=== PATIENT | female | born 1945 | race African-American/Black ===

== ENCOUNTER 2019-05-04 15:17 | Inpatient (IN) | payer MEDICARE, OTHER ==
[~2019-05-04] VITALS: Ht 165.1 cm; Wt 99.8 kg
[2019-05-04 15:19] VITALS: BP 103/52
[2019-05-04] MEDS ORDERED: Solu-MEDROL 125mg Inj IVP ONE (15:30)
[2019-05-04] MEDS: Albuterol ud Inhalation HHN SCH ×2 (15:31→15:32)
[2019-05-04] MEDS: Ipratropium 0.02% Inh Soln 2.5ml UD HHN SCH ×2 (15:31→15:32)
--- NOTE | 2019-05-04 16:15 | Diagnostic Imaging Report ---
Indication: Dyspnea Comparison: None A single view chest radiograph was obtained. Findings: There is infiltrate ill-defined at the left lung base suspicious for pneumonia. Correlate clinically. The heart is borderline enlarged. Aorta is ectatic and calcified. Bones are osteopenic. IMPRESSION: Suspected pneumonia at the left lung base
[2019-05-04] MEDS ORDERED: Azithromycin 500 MG in NS 275 ML IV ONE (16:30)
[2019-05-04] MEDS ORDERED: Piperacillin/Tazobactam 3.375 GM in NS 110 ML IVPB ONE (16:30)
[2019-05-04 16:36] LABS: APPEARANCE,URINE CLEAR; BILIRUBIN, URINE 2+ (NEGATIVE); GLUCOSE, URINE (UA) NEGATIVE (NEGATIVE); KETONES,URINE 1+ (NEGATIVE); LEUKOCYTE ESTERASE ,URINE 1+ (NEGATIVE); NITRITE,URINE NEGATIVE (NEGATIVE); PH,URINE 5 (4.5-8.0); PROTEIN,URINE 2+ (NEGATIVE); UROBILINOGEN,URINE 4 MG/DL (0.0-1.0)
[2019-05-04 16:44] LABS: COLOR,URINE YELLOW
[2019-05-04] MEDS ORDERED: LORazepam Inj 2mg/ml 1ml IV ONE (16:45)
[2019-05-04] MEDS ORDERED: BISACODYL10 M1 RC (16:49)
[2019-05-04] MEDS ORDERED: NORCO 5-325 TA1 EACH ORAL (16:49)
[2019-05-04] MEDS ORDERED: ACETAMINOPHEN500 M5 ORAL (16:49)
[2019-05-04] MEDS ORDERED: ISOSORBIDE MONO20 MG PO (16:49)
[2019-05-04] MEDS ORDERED: AMMONIUM LACTA385 GM TP (16:49)
[2019-05-04] MEDS ORDERED: METOPROLOL TART50 M1 ORAL (16:49)
[2019-05-04] MEDS ORDERED: MOM30 ML ORAL (16:49)
[2019-05-04] MEDS ORDERED: FUROSEMIDE40 MG ORAL (16:49)
[2019-05-04] MEDS ORDERED: ADALAT10 MG ORAL (16:49)
[2019-05-04] MEDS ORDERED: BUDESONIDE-FO10.2 GM IH (16:49)
[2019-05-04] MEDS ORDERED: POTASSIUM CHLO20 ME3 PO (16:49)
[2019-05-04] MEDS ORDERED: VENTOLIN HFA18 GM INH (16:49)
[2019-05-04] MEDS ORDERED: DIVALPROEX SOD125 MG PO (16:49)
[2019-05-04] MEDS ORDERED: CLONIDINE HCL0.1 MG PO (16:49)
[2019-05-04] MEDS ORDERED: BENZTROPINE ME0.5 MG ORAL (16:49)
[2019-05-04] MEDS ORDERED: FLONASE ALLERG9.9 ML NS (16:49)
[2019-05-04] MEDS ORDERED: ZOLPIDEM TARTRAT5 MG ORAL (16:49)
[2019-05-04] MEDS ORDERED: MAGNESIUM OXID400 M1 ORAL (16:49)
[2019-05-04] MEDS ORDERED: DOCUSATE SODIU100 M2 ORAL (16:49)
[2019-05-04] MEDS ORDERED: GABAPENTIN600 MG ORAL (16:49)
[2019-05-04] MEDS ORDERED: NAMENDA5 MG ORAL (16:49)
[2019-05-04] MEDS ORDERED: LISINOPRIL20 MG ORAL (16:49)
--- NOTE | 2019-05-04 17:33 | Emergency Room Report ---
History of Present Illness General Chief Complaint: Dyspnea/Respdistress Source: Family Member, Medical Record, EMS Present Illness HPI 73-year-old female presents ED for evaluation. Complaining with shortness of breath. O2 sats low. Placed on oxygen. History of COPD and CHF. Patient has nonverbal at baseline. Unable to provide any additional history at this time. Per EMS patient was transferred to this assisted facility from [facility]. Per he was unhappy with the care there so he requested a transfer. Patient was at the assisted facility for only a few hours when she came unstable and needed to be brought to the hospital. No reported fevers or chills. No reported chest pain. No other aggravating relieving factors. No other associated symptoms Allergies: Coded Allergies: No Known Allergies (Unverified , 05/04/19) Patient History Past Medical History: CHF, COPD Past Surgical History: none Pertinent Family History: none Social History: Denies: smoking, alcohol use, drug use Now: No Immunizations: UTD Reviewed Nursing Documentation: PMH: Agreed; PSxH: Agreed Review of Systems All Other Systems: limited Physical Exam Vital Signs Date Time Temp Pulse Resp B/P (MAP) Pulse Ox O2 Delivery O2 Flow Rate FiO2 05/04/19 15:09 98.6 100 20 92/44 (60) 96 Nasal Cannula 4.0 05/04/19 15:36 28 Sp02 EP Interpretation: reviewed, normal General Appearance: GCS 15, non-toxic, mild distress Head: normocephalic Eyes: bilateral eye normal inspection, bilateral eye PERRL ENT: normal ENT inspection Neck: normal inspection Respiratory: crackles, rales Cardiovascular #1: regular rate, rhythm, no edema Gastrointestinal: normal bowel sounds, non tender, soft, non-distended, no guarding, no rebound Rectal: deferred Genitourinary: no CVA tenderness Musculoskeletal: normal inspection Neurologic: other - nonverbal Psychiatric: other - nonverbal Skin: other - see nursing skin notes Lymphatic: normal inspection Procedures Critical Care Time Critical Care Time i. I feel this is a highly complex case requiring extensive working including EKG/Rhythm strip, Xray/CT/US, Blood/urine lab work, repeat exams while in ED, and administration of strong opiates/narcotics for pain control, admission to hospital or close patient follow up. Total time: 60 min bedside evaluation and treatment excludes procedures (EKG). Reason for critical care: hypoxia, CHF, hypercapnia, pneumonia Possible complications: hypotension, hypertension, MN, shock, arrhythmias, metabolic acidosis, end organ damage, respiratory failure. Interventions: Labs, EKG, chest x-ray, nebulizer treatment, antibiotics, ABG, BiPAP Course: 73-year-old female presents ED for shortness of breath. In transit from [facility] to another facility when she became hypoxic. Started on breathing treatments. Chest x-ray shows pneumonia. Patient very difficult IV access. Ultimately established by nursing. No leukocytosis. Hemoglobin/ hematocrit stable, BUN/creatinine elevated, troponin 0.038, BNP elevated, ABG shows some acidosis with hypercapnia. Started on BiPAP. Given broad-spectrum antibiotics Consultations: nursing staff, EMS, family Performed by: Dr Sagastume Tolerated well condition = critical j. because of unstable vital signs this patient had a condition that could potentially threaten life or limb. I feel this is a critical patient who required my full attention while patient was considered critical. Total Critical Care Time excluding procedures was greater than 60 minutes Medical Decision Making Diagnostic Impression: Primary Impression: Respiratory distress Additional Impressions: Pneumonia Qualified Codes: J18.9 - Pneumonia, unspecified organism CHF exacerbation Qualified Codes: I50.9 - Heart failure, unspecified Renal insufficiency Hypercapnic acidosis ER Course Hospital Course 73-year-old female presents with shortness of breath and hypoxia. In transit from 1 assisted facility to another. Differential diagnoses include: MN/unstable angina, contusion, muscle strain, PTX, rib fracture Clinical course Patient placed on stretcher. on surveillance monitor. After initial history and physical I ordered labs, EKG, chest x-ray, nebulizer treatments. labs reviewed- no leukocytosis, hemoglobin/hematocrit stable, BUN/creatinine elevated, troponins negative, BNP elevated. ABG shows acidosis with hypercapnia EKG - NSR, no acute ischemic changes inteprreted by me Chest x-ray- cardiomegaly, L lobe infiltrate Antibiotics given. Started on BiPAP. Respiratory status improved. given IVFs. Case discussed with Dr. Jo and he agreed to accept the patient to his service for further care and support I. I feel this is a highly complex case requiring extensive working including EKG/Rhythm strip, Xray/CT/US, Blood/urine lab work, repeat exams while in ED, and administration of strong opiates/narcotics for pain control, admission to hospital or close patient follow up. Diagnosis - respiratory distress, pneumonia, CHF exacerbation, renal insufficiency, hypercapnic acidosis admitted to SDU in critical condition Labs Test 05/04/19 16:00 05/04/19 16:30 05/04/19 17:45 05/04/19 20:20 Urine Color Yellow Urine Appearance Clear Urine pH 5 (4.5-8.0) Urine Specific Leander 1.020 (1.005-1.035) Urine Protein 2+ (NEGATIVE) Urine Glucose (UA) Negative (NEGATIVE) Urine Ketones 1+ (NEGATIVE) Urine Blood Negative (NEGATIVE) Urine Nitrite Negative (NEGATIVE) Urine Bilirubin 2+ (NEGATIVE) Urine Ictotest Negative (NEGATIVE) Urine Urobilinogen 4 MG/DL (0.0-1.0) Urine Leukocyte Esterase 1+ (NEGATIVE) Urine RBC 0-2 /HPF (0 - 2) Urine WBC 2-4 /HPF (0 - 2) Urine Squamous Epithelial Cells Few /LPF (NONE/OCC) Urine Bacteria Few /HPF (NONE) Arterial Blood pH 7.253 (7.350-7.450) Arterial Blood Partial Pressure CO2 61.0 mmHg (35.0-45.0) Arterial Blood Partial Pressure O2 66.4 mmHg (75.0-100.0) Arterial Blood HCO3 26.3 mmol/L (22.0-26.0) Arterial Blood Oxygen Saturation 89.5 % (95-100) Arterial Blood Base Excess -2.0 (-2-2) Hoang Test Positive White Blood Count 6.4 K/UL (4.8-10.8) Red Blood Count 3.99 M/UL (4.20-5.40) Hemoglobin 12.6 G/DL (12.0-16.0) Hematocrit 41.9 % (37.0-47.0) Mean Corpuscular Volume 105 FL (80-99) Mean Corpuscular Hemoglobin 31.5 PG (27.0-31.0) Mean Corpuscular Hemoglobin Concent 30.1 G/DL (32.0-36.0) Red Cell Distribution Width 16.4 % (11.6-14.8) Platelet Count 51 K/UL (150-450) Mean Platelet Volume 8.3 FL (6.5-10.1) Neutrophils (%) (Auto) % (45.0-75.0) Lymphocytes (%) (Auto) % (20.0-45.0) Monocytes (%) (Auto) % (1.0-10.0) Eosinophils (%) (Auto) % (0.0-3.0) Basophils (%) (Auto) % (0.0-2.0) Differential Total Cells Counted 100 Neutrophils % (Manual) 69 % (45-75) Lymphocytes % (Manual) 22 % (20-45) Monocytes % (Manual) 4 % (1-10) Eosinophils % (Manual) 0 % (0-3) Basophils % (Manual) 0 % (0-2) Band Neutrophils 5 % (0-8) Platelet Estimate Decreased Platelet Morphology Normal Red Blood Cell Morphology Normal Lactic Acid Level 1.90 mmol/L (0.4-2.0) Sodium Level 146 MMOL/L (136-145) Potassium Level 5.0 MMOL/L (3.5-5.1) Chloride Level 109 MMOL/L (98-107) Carbon Dioxide Level 28 MMOL/L (21-32) Anion Gap 9 mmol/L (5-15) Blood Urea Nitrogen 49 mg/dL (7-18) Creatinine 1.9 MG/DL (0.55-1.30) Estimat Glomerular Filtration Rate 31.3 mL/min (>60) Glucose Level 225 MG/DL (74-106) Calcium Level 8.5 MG/DL (8.5-10.1) Total Bilirubin 0.3 MG/DL (0.2-1.0) Aspartate Amino Transf (AST/SGOT) 62 U/L (15-37) Alanine Aminotransferase (ALT/SGPT) 36 U/L (12-78) Alkaline Phosphatase 57 U/L (46-116) Troponin I 0.038 ng/mL (0.000-0.056) Pro-B-Type Natriuretic Peptide 2886 pg/mL (0-125) Total Protein 7.2 G/DL (6.4-8.2) Albumin 2.4 G/DL (3.4-5.0) Globulin 4.8 g/dL Albumin/Globulin Ratio 0.5 (1.0-2.7) EKG Diagnostic Results Rate: normal Rhythm: NSR ST Segments: no acute changes ASA given to the pt in ED: No Rhythm Strip Diag. Results EP Interpretation: yes Rhythm: NSR, no PVC's, no ectopy Chest X-Ray Diagnostic Results Chest X-Ray Diagnostic Results : Chest X-Ray Ordered: Yes # of Views/Limited/Complete: 1 View Indication: Shortness of Breath EP Interpretation: Yes Interpretation: no pneumothorax, other - LLL infiltrate Impression: Other - pneumonia Electronically Signed by: Electronically signed by Osman Sagastume MD Last Vital Signs Date Time Temp Pulse Resp B/P (MAP) Pulse Ox O2 Delivery O2 Flow Rate FiO2 05/04/19 15:36 97 18 100 Nasal Cannula 2.0 28 90 26 100 05/04/19 15:19 98.6 103/52 Status: improved Disposition: HOME, SELF-CARE Condition: Critical Referrals: NOT CHOSEN IPA/,REFERRING (PCP) Osman Sagastume MD May 04, 2019 17:33
[2019-05-04 18:17] LABS: HEMATOCRIT 41.9 % (37.0-47.0); HEMOGLOBIN 12.6 G/DL (12.0-16.0); MEAN CORPUSCULAR VOLUME 105 FL (80-99); PLATELET COUNT 51 K/UL (150-450); RED BLOOD COUNT 3.99 M/UL (4.20-5.40); RED CELL DISTRIBUTION WIDTH 16.4 % (11.6-14.8); WHITE BLOOD COUNT 6.4 K/UL (4.8-10.8)
[2019-05-04 19:30] VITALS: BP 111/56
[2019-05-04 20:30] VITALS: BP 126/62
[2019-05-04] MEDS ORDERED: Zolpidem 5mg tab ORAL PRN ×2 (20:30→20:45)
[2019-05-04] MEDS ORDERED: HYDROcodone/Acetamin 5/325 tab ORAL PRN (20:30)
[2019-05-04] MEDS ORDERED: Milk of Magnesia 30ml Ud ORAL PRN (20:45)
[2019-05-04] MEDS: Albuterol/Ipratropium 3ml neb HHN SCH (21:00)
[2019-05-04] MEDS: Metoprolol Tartrate 50mg tab ORAL SCH (21:00)
[2019-05-04] MEDS: Depakote 125mg Sprinkles ORAL SCH (21:00)
[2019-05-04 21:05] LABS: ANION GAP 9 mmol/L (5-15); BLOOD UREA NITROGEN 49 mg/dL (7-18); CALCIUM 8.5 MG/DL (8.5-10.1); CARBON DIOXIDE 28 MMOL/L (21-32); CHLORIDE 109 MMOL/L (98-107); CREATININE 1.9 MG/DL (0.55-1.30); SODIUM 146 MMOL/L (136-145)
[2019-05-04 21:16] LABS: ALANINE AMINOTRANSFERASE 36 U/L (12-78); ALBUMIN 2.4 G/DL (3.4-5.0); ALBUMIN/GLOBULIN RATIO 0.5 (1.0-2.7); ALKALINE PHOSPHATASE 57 U/L (46-116); ASPARTATE AMINO TRANSFERASE 62 U/L (15-37); BILIRUBIN,TOTAL 0.3 MG/DL (0.2-1.0)
[2019-05-04 21:45] VITALS: BP 129/70
[2019-05-04] MEDS ORDERED: Piperacillin/Tazobactam 2.25 GM in D5W 55 ML IVPB SCH (22:00)
[2019-05-04] MEDS: Zosyn 3.375gm q8h **Extended infusion IVPB SCH ×2 (23:06)
[2019-05-05] VITALS (31 sets, daily range): BP systolic 86–174; BP diastolic 38–88
[2019-05-05] MEDS: Naloxone 0.4mg/ml Inj IVP SCH (01:30)
[2019-05-05] MEDS ORDERED: Naloxone 0.4mg/ml Inj ONE ×2 (01:31→01:40)
[2019-05-05] MEDS: Albuterol/Ipratropium 3ml neb HHN SCH ×4 (01:45→19:02)
[2019-05-05] MEDS ORDERED: Vancomycin 500 MG in NS 110 ML IV SCH (02:00)
--- NOTE | 2019-05-05 02:47 | Diagnostic Imaging Report ---
Indications: Altered level of consciousness Technique: Spiral acquisitions obtained through the brain. Angled axial and coronal 5 x 5 mm slices were reconstructed. Total dose length product 1179 mGycm. CTDI vol(s) 53 mGy. Dose reduction achieved using automated exposure control Comparison: None. Findings: There is age-related enlargement of the ventricles and extra axial CSF spaces. There is periventricular deep white matter low-attenuation, consistent with chronic microvascular ischemic changes. No acute intracranial hemorrhage or edema. No mass effect nor midline shift. Normal pantoja-white differentiation. Intact calvarium. Impression: Chronic and age-related changes. Negative for acute intracranial bleed or mass effect This agrees with the preliminary interpretation provided overnight by [facility]. The CT scanner at [facility] is accredited by the [employer] and the scans are performed using protocols designed to limit radiation exposure to as low as reasonably achievable to attain images of sufficient resolution adequate for diagnostic evaluation.
--- NOTE | 2019-05-05 04:20 | Emergency Room Report ---
History of Present Illness General Chief Complaint: Dyspnea/Respdistress Source: Family Member, Medical Record, EMS Present Illness Allergies: Coded Allergies: No Known Allergies (Unverified , 05/04/19) Patient History Now: No Nursing Documentation-PMH Hx Cardiac Problems: Yes Hx Hypertension: Yes Hx COPD: Yes Hx Cancer: No Hx Gastrointestinal Problems: No Hx Neurological Problems: Yes Hx Dementia: Yes Physical Exam Vital Signs Date Time Temp Pulse Resp B/P (MAP) Pulse Ox O2 Delivery O2 Flow Rate FiO2 05/04/19 15:09 98.6 100 20 92/44 (60) 96 Nasal Cannula 4.0 05/04/19 15:36 28 Procedures Critical Care Time Critical Care Time 30 minutes for multiple re-evaluations acute deterioration requiring repeat exam concerning for respiratory failure not including any procedural time Central Line Central Line : Consent: Emergent Central Line Lumen: triple Maximal Sterile Barrier Tech: yes cap, yes mask, yes sterile gown, yes sterile gloves, yes large sterile sheet, yes hand hygiene, yes chlorhexidine prep Central Line Postion: femoral (R) Complications: none Central Line Post Position: sutured Attempts: One Patient Tolerated: Well Complications: None Intubation Intubation : Consent: Emergent Intubation Method: orotracheal Tube Size (cm): 7.5 Medications: Etomidate, Succinylcholine Breath Sounds after Intubation: equal Intubation Complications: no complications Attempts: One Patient Tolerated: Well Complications: None Additional Procedure Procedure Narrative I was called upstairs by the admitting physician for an airway intubation Upon arrival to the floor patient's blood pressure is in the mid 90s however does appear to be fairly labile Therefore central line placement was made please refer to the note for that patient had some response with physical stimuli The second ABG appears to be fairly similar to the initial the rate on the BiPAP was increased And the O2 decreased However after repeat ABG patient continues to retain CO2 Initially during the work-up patient's pupils were also fairly pinpoint appearing therefore Narcan had been given and CT head obtained Patient did not have much response to Narcan and CT head at this time is not showing any acute process by radiology Please refer to the note for the intubation at this time patient's care is handed back to the admitting physician Medical Decision Making Diagnostic Impression: Primary Impression: Respiratory distress Additional Impressions: Hypercapnic acidosis Renal insufficiency CHF exacerbation Qualified Codes: I50.9 - Heart failure, unspecified Pneumonia Qualified Codes: J18.9 - Pneumonia, unspecified organism Chest X-Ray Diagnostic Results Chest X-Ray Diagnostic Results : Chest X-Ray Ordered: Yes # of Views/Limited/Complete: 1 View Indication: Other - Intubation EP Interpretation: Yes Interpretation: no consolidation, no effusion, other - ET tube appropriately above gauri Impression: Other - ET tube appropriate placement Electronically Signed by: Anju Salmon DO Last Vital Signs Date Time Temp Pulse Resp B/P (MAP) Pulse Ox O2 Delivery O2 Flow Rate FiO2 05/05/19 03:15 92 16 108/60 (76) 99 05/05/19 01:30 33 05/05/19 00:00 97.4 05/05/19 00:00 Bi-pap 05/04/19 22:20 2.0 Disposition: HOME, SELF-CARE Condition: Critical Referrals: NOT CHOSEN IPA/,REFERRING (PCP) Anju Salmon DO May 05, 2019 04:20
[2019-05-05] MEDS: Vancomycin 500 MG in NS 110 ML IV SCH ×2 (04:39→16:28)
--- NOTE | 2019-05-05 05:52 | Diagnostic Imaging Report ---
Indication: Post intubation Technique: One view of the chest Comparison: 05/04/2019 Findings: Interim endotracheal intubation, endotracheal tube tip projecting approximately 4 cm above the gauri in good position. Interim nasogastric intubation, nasogastric tube tip projecting beyond the edge of the image, presumably in satisfactory position.. There is improved aeration of the left lung base, with some residual interstitial opacity. The pleural spaces are clear. The heart size is normal Impression: Satisfactory endotracheal and nasogastric intubation Improved aeration of the left lung base, over one day This agrees with the preliminary interpretation provided overnight by [facility].
--- NOTE | 2019-05-05 05:59 | Diagnostic Imaging Report ---
Indication: Status post nasogastric tube placement Technique: Supine view of the upper abdomen Comparison: none Findings: There is a nasogastric tube in place, tip of which projects at the level gastric body. Visualized bowel gas is grossly unremarkable. There is evidence of a Lacey catheter. There is evidence of prior lumbar spine fusion surgery Impression: Satisfactory nasogastric intubation Other findings as noted This agrees with the preliminary interpretation provided overnight by [facility].
[2019-05-05] MEDS: Zosyn 3.375gm q8h **Extended infusion IVPB SCH ×6 (06:20→22:06)
[2019-05-05 07:41] LABS: ANION GAP 11 mmol/L (5-15); BLOOD UREA NITROGEN 49 mg/dL (7-18); CALCIUM 8.5 MG/DL (8.5-10.1); CARBON DIOXIDE 26 MMOL/L (21-32); CHLORIDE 111 MMOL/L (98-107); CHOLESTEROL 115 MG/DL (< 200); CREATININE 1.5 MG/DL (0.55-1.30); HDL CHOLESTEROL 50 MG/DL (40-60); SODIUM 148 MMOL/L (136-145); TRIGLYCERIDES 70 MG/DL (30-150)
[2019-05-05] MEDS ORDERED: Heparin 5000 units/ml inj SUBQ SCH (09:00)
[2019-05-05] MEDS ORDERED: Memantine 5 MG TAB ORAL SCH (09:00)
[2019-05-05] MEDS ORDERED: Lisinopril 20mg tab ORAL SCH (09:00)
[2019-05-05] MEDS: Depakote 125mg Sprinkles ORAL SCH (09:01)
[2019-05-05] MEDS: Pantoprazole Inj IVP SCH (09:01)
[2019-05-05] MEDS: Milk of Magnesia 30ml Ud ORAL SCH (09:01)
[2019-05-05] MEDS: Metoprolol Tartrate 50mg tab ORAL SCH (09:29)
--- NOTE | 2019-05-05 10:00 | History & Physical ---
History and Physical History & Physicial HP dictated # [id number] Jeffrey Jo MD May 05, 2019 10:00
[2019-05-05] MEDS ORDERED: traMADol 50mg tab NG PRN (10:30)
[2019-05-05 13:04] LABS: ANION GAP 10 mmol/L (5-15); BLOOD UREA NITROGEN 48 mg/dL (7-18); CALCIUM 8.4 MG/DL (8.5-10.1); CARBON DIOXIDE 28 MMOL/L (21-32); CHLORIDE 113 MMOL/L (98-107); CREATININE 1.4 MG/DL (0.55-1.30); POTASSIUM 3.8 MMOL/L (3.5-5.1); SODIUM 151 MMOL/L (136-145)
[2019-05-05 13:19] LABS: HEMATOCRIT 37.6 % (37.0-47.0); MEAN CORPUSCULAR VOLUME 102 FL (80-99); PLATELET COUNT 60 K/UL (150-450); RED CELL DISTRIBUTION WIDTH 14.7 % (11.6-14.8); WHITE BLOOD COUNT 7.5 K/UL (4.8-10.8)
--- NOTE | 2019-05-05 14:38 | Diagnostic Imaging Report ---
Indication: Shortness of breath, thrombocytopenia Technique: Grayscale and duplex images of the bilateral lower extremity veins Comparison: Findings: Bilaterally, grayscale and duplex images demonstrate no evidence of intraluminal thrombus. Normal phasic Doppler waveforms, demonstrating normal augmentation response and no evidence of valvular insufficiency. Greater saphenous vein(s) and tibial veins are patent. Normal compressibility. Impression: Negative for evidence of lower extremity deep venous thrombosis bilaterally
--- NOTE | 2019-05-05 14:56 | Pulmonolgy Critical Care Note ---
Critical Care - Asmt/Plan Problems: (1) Dependence on respirator [ventilator] status (2) Respiratory distress (3) Hypercapnic acidosis (4) COPD exacerbation (5) CHF exacerbation (6) Pneumonia (7) Renal insufficiency (8) Weakness (9) Chronic paranoid schizophrenia (10) Dementia (11) H/O: CVA (cerebrovascular accident) (12) Hypernatremia (13) DANYEL (acute kidney injury) Assessment/Plan: Continue ventilatory support Dec TV to 45, RR 24 FiO2 40, titrate to SaO2 > 90, PEEP 5 SBT in am RTC and PRN DUOnebs SM 40 IV qDaily (D1) Abx (Zosyn/Vanco) per ID Monitor volumes and renal function, D5W per renal, PRN Lasix F/U TTE Start OGTF's Minimize sedative, F/U psych recs DVT Px: Hep Sq FC, continue to discuss GOC CCT 45 D/W RN, RT, Dr. Jo and Dr. Tavera D/W @ bedside Critical Care - Objective Last 24 Hour Vital Signs Date Time Temp Pulse Resp B/P (MAP) Pulse Ox O2 Delivery O2 Flow Rate FiO2 05/05/19 12:52 83 18 100 Mechanical Ventilator 65.0 50 82 18 30 05/05/19 12:00 30 05/05/19 12:00 81 05/05/19 12:00 83 18 137/82 (100) 100 05/05/19 11:00 85 18 143/62 (89) 100 05/05/19 10:57 83 18 50 05/05/19 10:00 85 18 162/38 (79) 100 05/05/19 09:29 19 150/76 05/05/19 09:07 77 18 50 05/05/19 09:03 150/76 05/05/19 09:00 84 18 155/83 (107) 100 05/05/19 08:00 30 05/05/19 08:00 87 05/05/19 08:00 79 18 174/77 (109) 100 05/05/19 07:29 87 18 100 Mechanical Ventilator 65.0 50 88 18 50 05/05/19 07:00 80 18 153/83 (106) 100 05/05/19 06:30 84 16 153/81 (105) 100 05/05/19 06:15 88 18 135/86 (102) 05/05/19 06:00 91 18 116/73 (87) 100 05/05/19 05:00 100 17 137/88 (104) 100 05/05/19 04:30 92 18 50 05/05/19 04:30 92 18 99 Mechanical Ventilator 50 05/05/19 04:00 Mechanical Ventilator 05/05/19 04:00 98.2 97 14 133/60 (84) 93 05/05/19 04:00 100 05/05/19 03:15 92 16 108/60 (76) 99 05/05/19 03:00 93 15 102/61 (75) 100 05/05/19 02:45 96 18 131/63 (85) 100 05/05/19 02:34 92 14 102/62 (75) 94 05/05/19 02:00 83 18 108/65 (79) 98 05/05/19 01:30 33 05/05/19 01:04 93 12 100 40 05/05/19 01:00 93 19 97/54 (68) 99 05/05/19 00:35 105 05/05/19 00:30 93 21 101/54 (70) 98 05/05/19 00:00 50 05/05/19 00:00 97.4 97 26 86/47 (60) 98 05/05/19 00:00 Bi-pap 05/04/19 23:06 104 22 99 Bi-Pap 50 05/04/19 23:03 104 22 99 50 05/04/19 22:36 105 05/04/19 22:20 98.6 113 25 129/70 99 Bi-pap 2.0 50 05/04/19 22:01 Bi-Pap 05/04/19 21:45 98.6 113 25 129/70 99 Bi-pap 2.0 50 05/04/19 21:09 114 25 100 50 05/04/19 21:00 105 93/50 05/04/19 20:30 98.6 110 24 126/62 100 Bi-pap 2.0 50 05/04/19 20:29 118 34 100 50 05/04/19 19:30 98.6 108 18 111/56 95 Nasal Cannula 2.0 28 05/04/19 15:36 97 18 100 Nasal Cannula 2.0 28 90 26 100 2/26/20 15:19 98.6 95 20 103/52 100 Nasal Cannula 4.0 05/04/19 15:19 95 20 Nasal Cannula 4.0 05/04/19 15:09 98.6 100 20 92/44 (60) 96 Nasal Cannula 4.0 Status: sedated - intubated Condition: critical HEENT: atraumatic, normocephalic, other - ETT, OGT Lungs: rhonchi Heart: HR/BP stable Abdomen: soft, non-tender, active bowel sounds Extremities: no C/C/E Micro: Microbiology Date/Time Source Procedure Growth Status 05/04/19 16:20 Nasal Nares - Final Complete 05/04/19 16:20 Nasal Nares - Final Complete 05/04/19 15:40 Rectum Received Blood Sugars: BS controlled Critical Care - Subjective ROS Limited/Unobtainable: Yes ICU Day: 1 Intubation Day: 2 Interval Events: 73 F non-verbal, ? dementia, ? CPS, COPD, CHF BIB EMS with SOB though to be 2/2 ADHF vs COPD exac vs tracheobronchitis She initially went to [facility] but given persistent CO2 retention was transferred to the ICU and intubated. She was hypotensive had a line placed got IVF and did not require pressors. Now she is hypertensive. Per RN MS has been waxing and waning, she in non-verbal but nods. She is in restraints. Per her she was being treated with psych meds @ the facility and has a Dx of CPS and dementia which he contests. He denies any h/o neuropsych problems. Condition: critical IV Access: central - R fem TLC EKG Rhythm: Sinus Rhythm FI02: 50 Vent Support Breath Rate: 18 Vent Support Mode: AC Vent Tidal Volume: 650 Sputum Amount: Small PEEP: 5.0 PIP: 35 Secretions: small white thick Fluids: D5W@75 Drips: N/A I&O: Intake and Output 05/04/19 05/05/19 19:00 07:00 Intake Total 610 ml 760 ml Output Total 430 ml Balance 610 ml 330 ml Intake Oral 0 ml IV Total 610 ml 760 ml Output Urine Total 430 ml Subjective: KEVIN CXR: NAD BIB atx ET-Tube: 7.5 ET Position: 23 Labs: Laboratory Tests Test 05/04/19 16:00 05/04/19 16:30 05/04/19 17:45 05/04/19 20:20 Urine Color Yellow Urine Appearance Clear Urine pH 5 (4.5-8.0) Urine Specific [place] 1.020 (1.005-1.035) Urine Protein 2+ (NEGATIVE) H Urine Glucose (UA) Negative (NEGATIVE) Urine Ketones 1+ (NEGATIVE) H Urine Blood Negative (NEGATIVE) Urine Nitrite Negative (NEGATIVE) Urine Bilirubin 2+ (NEGATIVE) H Urine Ictotest Negative (NEGATIVE) Urine Urobilinogen 4 MG/DL (0.0-1.0) H Urine Leukocyte Esterase 1+ (NEGATIVE) H Urine RBC 0-2 /HPF (0 - 2) Urine WBC 2-4 /HPF (0 - 2) Urine Squamous Epithelial Cells Few /LPF (NONE/OCC) Urine Bacteria Few /HPF (NONE) Arterial Blood pH 7.253 (7.350-7.450) Arterial Blood Partial Pressure CO2 61.0 mmHg (35.0-45.0) *H Arterial Blood Partial Pressure O2 66.4 mmHg (75.0-100.0) L Arterial Blood HCO3 26.3 mmol/L (22.0-26.0) H Arterial Blood Oxygen Saturation 89.5 % (95-100) *L Arterial Blood Base Excess -2.0 (-2-2) Hoang Test Positive White Blood Count 6.4 K/UL (4.8-10.8) Red Blood Count 3.99 M/UL (4.20-5.40) L Hemoglobin 12.6 G/DL (12.0-16.0) Hematocrit 41.9 % (37.0-47.0) Mean Corpuscular Volume 105 FL (80-99) H Mean Corpuscular Hemoglobin 31.5 PG (27.0-31.0) H Mean Corpuscular Hemoglobin Concent 30.1 G/DL (32.0-36.0) L Red Cell Distribution Width 16.4 % (11.6-14.8) H Platelet Count 51 K/UL (150-450) L Mean Platelet Volume 8.3 FL (6.5-10.1) Neutrophils (%) (Auto) % (45.0-75.0) Lymphocytes (%) (Auto) % (20.0-45.0) Monocytes (%) (Auto) % (1.0-10.0) Eosinophils (%) (Auto) % (0.0-3.0) Basophils (%) (Auto) % (0.0-2.0) Differential Total Cells Counted 100 Neutrophils % (Manual) 69 % (45-75) Lymphocytes % (Manual) 22 % (20-45) Monocytes % (Manual) 4 % (1-10) Eosinophils % (Manual) 0 % (0-3) Basophils % (Manual) 0 % (0-2) Band Neutrophils 5 % (0-8) Platelet Estimate Decreased L Platelet Morphology Normal Red Blood Cell Morphology Normal Lactic Acid Level 1.90 mmol/L (0.4-2.0) Sodium Level 146 MMOL/L (136-145) H Potassium Level 5.0 MMOL/L (3.5-5.1) Chloride Level 109 MMOL/L (98-107) H Carbon Dioxide Level 28 MMOL/L (21-32) Anion Gap 9 mmol/L (5-15) Blood Urea Nitrogen 49 mg/dL (7-18) H Creatinine 1.9 MG/DL (0.55-1.30) H Estimat Glomerular Filtration Rate 31.3 mL/min (>60) Glucose Level 225 MG/DL (74-106) H Calcium Level 8.5 MG/DL (8.5-10.1) Total Bilirubin 0.3 MG/DL (0.2-1.0) Aspartate Amino Transf (AST/SGOT) 62 U/L (15-37) H Alanine Aminotransferase (ALT/SGPT) 36 U/L (12-78) Alkaline Phosphatase 57 U/L (46-116) Troponin I 0.038 ng/mL (0.000-0.056) Pro-B-Type Natriuretic Peptide 2886 pg/mL (0-125) H Total Protein 7.2 G/DL (6.4-8.2) Albumin 2.4 G/DL (3.4-5.0) L Globulin 4.8 g/dL Albumin/Globulin Ratio 0.5 (1.0-2.7) L Test 05/05/19 00:39 05/05/19 03:42 05/05/19 05:20 05/05/19 07:53 Arterial Blood pH 7.275 (7.350-7.450) 7.252 (7.350-7.450) 7.544 (7.350-7.450) Arterial Blood Partial Pressure CO2 61.5 mmHg (35.0-45.0) *H 69.2 mmHg (35.0-45.0) *H 31.6 mmHg (35.0-45.0) L Arterial Blood Partial Pressure O2 83.8 mmHg (75.0-100.0) 75.8 mmHg (75.0-100.0) 122.2 mmHg (75.0-100.0) H Arterial Blood HCO3 27.9 mmol/L (22.0-26.0) H 29.8 mmol/L (22.0-26.0) H 26.7 mmol/L (22.0-26.0) H Arterial Blood Oxygen Saturation 94.6 % (95-100) L 93.0 % (95-100) L 98.6 % (95-100) Arterial Blood Base Excess 0 (-2-2) 1.0 (-2-2) 4.6 (-2-2) H Hoang Test Positive Positive Positive Sodium Level 148 MMOL/L (136-145) H Potassium Level 5.0 MMOL/L (3.5-5.1) Chloride Level 111 MMOL/L (98-107) H Carbon Dioxide Level 26 MMOL/L (21-32) Anion Gap 11 mmol/L (5-15) Blood Urea Nitrogen 49 mg/dL (7-18) H Creatinine 1.5 MG/DL (0.55-1.30) H Estimat Glomerular Filtration Rate 41.1 mL/min (>60) Glucose Level 204 MG/DL (74-106) H Hemoglobin A1c 6.5 % (4.3-6.0) H Calcium Level 8.5 MG/DL (8.5-10.1) Magnesium Level 1.9 MG/DL (1.8-2.4) Triglycerides Level 70 MG/DL (30-150) Cholesterol Level 115 MG/DL (< 200) LDL Cholesterol 56 mg/dL (<100) HDL Cholesterol 50 MG/DL (40-60) Cholesterol/HDL Ratio 2.3 (3.3-4.4) L Thyroid Stimulating Hormone (TSH) 1.252 uiU/mL (0.358-3.740) Test 05/05/19 10:30 White Blood Count 7.5 K/UL (4.8-10.8) Red Blood Count 3.70 M/UL (4.20-5.40) L Hemoglobin 12.0 G/DL (12.0-16.0) Hematocrit 37.6 % (37.0-47.0) Mean Corpuscular Volume 102 FL (80-99) H Mean Corpuscular Hemoglobin 32.3 PG (27.0-31.0) H Mean Corpuscular Hemoglobin Concent 31.9 G/DL (32.0-36.0) L Red Cell Distribution Width 14.7 % (11.6-14.8) Platelet Count 60 K/UL (150-450) L Mean Platelet Volume 7.2 FL (6.5-10.1) Neutrophils (%) (Auto) % (45.0-75.0) Lymphocytes (%) (Auto) % (20.0-45.0) Monocytes (%) (Auto) % (1.0-10.0) Eosinophils (%) (Auto) % (0.0-3.0) Basophils (%) (Auto) % (0.0-2.0) Differential Total Cells Counted 100 Neutrophils % (Manual) 78 % (45-75) H Lymphocytes % (Manual) 16 % (20-45) L Monocytes % (Manual) 6 % (1-10) Eosinophils % (Manual) 0 % (0-3) Basophils % (Manual) 0 % (0-2) Band Neutrophils 0 % (0-8) Platelet Estimate Decreased L Platelet Morphology Normal Anisocytosis 1+ Macrocytosis 1+ Sodium Level 151 MMOL/L (136-145) H Potassium Level 3.8 MMOL/L (3.5-5.1) Chloride Level 113 MMOL/L (98-107) H Carbon Dioxide Level 28 MMOL/L (21-32) Anion Gap 10 mmol/L (5-15) Blood Urea Nitrogen 48 mg/dL (7-18) H Creatinine 1.4 MG/DL (0.55-1.30) H Estimat Glomerular Filtration Rate 44.5 mL/min (>60) Glucose Level 144 MG/DL (74-106) H Calcium Level 8.4 MG/DL (8.5-10.1) L Rd Li MD May 05, 2019 14:56
[2019-05-05] MEDS ORDERED: Haloperidol 5mg/ml Inj IM PRN (15:00)
[2019-05-05] MEDS ORDERED: LORazepam Inj 2mg/ml 1ml IV PRN (15:15)
--- NOTE | 2019-05-05 16:00 | History and Physical Report ---
DATE OF ADMISSION: 05/04/2019 CHIEF COMPLAINT: Shortness of breath. HISTORY OF PRESENT ILLNESS: This is a 73-year-old female, who [facility]. The first long term was called [facility] and she was supposed to go to [facility], but she got short of breath. She came to the emergency room. She has history of history of COPD and CHF. She was placed on oxygen and was admitted to [facility] overnight and received multiple calls that the patient became hypotensive and repeat ABG shows respiratory acidosis with CO2 retention and the patient was eventually transferred to the ICU at my request and was intubated. Also, a central line was placed because of the hypotension and need for pressors. This morning, the blood pressure is better. History was obtained from the chart, also talking to the who is at bedside. PAST MEDICAL HISTORY: Basically as above. Apparently, the patient has had also history of high blood pressure. No history of dementia, but she was on some psychiatric medications per although she does not have any psychiatric disease. SOCIAL HISTORY: Remote history of smoking. No history of alcohol abuse. ALLERGIES: No known drug allergies. REVIEW OF SYSTEMS: Unobtainable. PHYSICAL EXAMINATION: GENERAL: The patient is an elderly female, in no acute distress. She is orally intubated. VITAL SIGNS: Blood pressure 150/76, pulse 84, respiratory rate 16, and temperature is 98.2. HEENT: [place] conjunctivae. NECK: Supple. LUNGS: Coarse breath sounds bilaterally. HEART: S1, S2 without murmurs or rubs. ABDOMEN: Soft, nontender. EXTREMITIES: No cyanosis or edema. LABORATORY FINDINGS: The CBC shows a WBC of 6100, hematocrit is 41.9, hemoglobin is 12.6, platelets 51,000. Chemistry panel shows a serum sodium 148, potassium 5, chloride 111, CO2 26, BUN is 49, creatinine 1.5. Creatinine was 1.9 yesterday. The TSH is 1.2. LDL 56. AST . Triglycerides of 70. The UA shows 2+ protein. Chest x-ray reportedly showed left lower lobe base infiltrate and possible pneumonia. ASSESSMENT: This is a 73-year-old female, who was admitted with dyspnea. She has COPD exacerbation with CO2 retention and respiratory acidosis. She became hypotensive overnight, so there is possibility of sepsis. She has pneumonia, thrombocytopenia, and acute respiratory failure, requiring intubation. PLAN: The patient will be on respirator. The patient will be seen by Dr. Li in Pulmonary consultation. She will be weaned off as tolerated and she was started on antibiotics. Blood pressure medication will be on hold at this point. The patient does not require pressors although she was hypotensive last night. She will receive IV fluid to correct her hypernatremia. Labs will be followed and further adjustment will be made in the patient's regimen. Jeffrey Jo M.D. DR: SHREYA JOB#: [id number] CC:
[2019-05-05] MEDS ORDERED: Dyna-Hex 2% Top Sol 2oz TOPIC SCH (20:00)
--- NOTE | 2019-05-05 20:00 | Consultation ---
DATE OF CONSULTATION: 05/05/2019 CONSULTING PHYSICIAN: Nati Tavera M.D. HISTORY OF PRESENT ILLNESS: This is a 73-year-old female with a history of dementia, COPD, weakness, CHF, and pneumonia who has been admitted to the hospital for medical stabilization. In addition, the patient has a history of CVA. The patient is in ICU. is at bedside. The patient is agitated, in restraints, attempting to come out of bed, and taking self out of the restraints. The patient's stated that the patient never had a history of a psychiatric illness. No agitation. The patient is confused, disoriented, poor memory. The stated that the patient to a psychiatric hospital nor taking any psychotropic medication before [facility]. The patient's stated that the [facility] overmedicated the patient. The patient currently is on Namenda and Depakote. The patient was intubated and was unable to answer any questions. However, she was agitated and is attempting to come out of the bed. PAST PSYCHIATRIC HISTORY: It is documented that the patient has a history of dementia and has been on multiple psychotropic medications. PAST MEDICAL HISTORY: Obesity, hypertension, CVA. ALLERGIES: No known drug allergies. SUBSTANCE ABUSE HISTORY: No known history of illicit drug use or alcohol. SOCIAL HISTORY: The patient is . Used to live at [facility] up until recently. MENTAL STATUS EXAMINATION: The patient is alert, intubated, confused. Mood is agitated. Affect is flat. Thought process is disorganized. Thought content, no suicidal or homicidal ideation noted. Cognition is impaired. ASSESSMENT: [place] I Dementia with behavior disturbance by history. [place] II Deferred. [place] III As above. [place] IV Low. [place] V 20. PLAN: 1. We will discontinue the Depakote, discontinue Ativan. 2. Haldol p.r.n. 3. Discussed with the and nurse as well as Dr. Li. Nati Tavera M.D. DR: HAILEY JOB#: [id number] CC: RAMONA
[2019-05-05] MEDS: Dyna-Hex 2% Top Sol 2oz TOPIC SCH (20:23)
--- NOTE | 2019-05-05 20:30 | Consultation ---
DATE OF CONSULTATION: 05/05/2019 INFECTIOUS DISEASE CONSULTATION CONSULTING PHYSICIAN: Justo Jo M.D. PRIMARY ATTENDING PHYSICIAN: Jeffrey Jo M.D. REASON FOR CONSULT: Pneumonia. HISTORY OF PRESENT ILLNESS: This is a 73-year-old female, who is a [facility] resident admitted yesterday complaining of shortness of breath, coughing, has decrease in O2 saturation thus was put on BiPAP and the condition became worse, intubated. Currently, she is in the ICU and not the source of history, on restraints. PAST MEDICAL HISTORY: Significant for COPD, hypertension, dementia, and CHF. MEDICATIONS: Getting tramadol, magnesium hydroxide, Neurontin, Protonix, vancomycin, Zosyn, albuterol ipratropium inhaler, Tylenol, milk of magnesium, Klonopin, [place], and Ambien. ALLERGIES: No known drug allergies. SOCIAL HISTORY: . Has history of smoking, quit recently. No drug or alcohol abuse. Have children. REVIEW OF SYSTEMS: Unobtainable. PHYSICAL EXAMINATION: VITAL SIGNS: Temperature 98.2. No fever in the hospital. Pulse 82, blood pressure is 137/82. GENERAL APPEARANCE: Seems to be obese. HEAD AND NECK: Orally intubated. Has orogastric tube. HEART: Normal rate. LUNGS: On ventilator. Decreased sounds. ABDOMEN: Soft and nontender. EXTREMITY: Has no edema. NEUROLOGIC: Seems disoriented. LABORATORY AND DIAGNOSTIC DATA: WBC 7.5, hemoglobin 12, hematocrit 37.6, and platelets is 60,000. Blood gas at the time of admission showed pCO2 of 61, pO2 of 66.4. UA, no WBC. Chest x-ray at the time of admission, left lower lobe pneumonia. After intubation, chest x-ray showed improvement of the left lung aeration. CT scan of the head showed chronic age-related changes. IMPRESSION: Pneumonia, has hypercapnic respiratory failure, chronic obstructive pulmonary disease, hypertension, dementia, history of congestive heart failure, obesity, and thrombocytopenia. RECOMMENDATIONS: Continue vancomycin and Zosyn. We will follow up the cultures. At the end of my exam, I thank Dr. Jeffrey Jo for involving me in the care of this patient. Justo Jo M.D. DR: DARLINE JOB#: [id number] CC:
[2019-05-05] MEDS ORDERED: DEPAKOTE ER250 MG ORAL (20:58)
[2019-05-05] MEDS ORDERED: GUAIFENESIN DM118 M1 ORAL (20:58)
[2019-05-05] MEDS ORDERED: IPRATROPIU0.2 MG/1 M HHN (20:58)
[2019-05-05] MEDS ORDERED: FLONASE1 SPRAYS NASAL (20:58)
[2019-05-05] MEDS ORDERED: ALBUTEROL2.5 MG/3 M INH (20:58)
[2019-05-05] MEDS ORDERED: ISOSORBIDE MONO30 M1 PO (20:58)
[2019-05-05] MEDS ORDERED: LISINOPRIL40 MG ORAL (20:58)
[2019-05-05] MEDS ORDERED: DOCUSATE SODIU100 MG ORAL (20:58)
[2019-05-06] VITALS (26 sets, daily range): BP systolic 101–191; BP diastolic 48–104
[2019-05-06] MEDS: Albuterol/Ipratropium 3ml neb HHN SCH ×3 (00:50→18:58)
[2019-05-06] MEDS: Vancomycin 500 MG in NS 110 ML IV SCH ×2 (03:53→16:15)
[2019-05-06] MEDS: Zosyn 3.375gm q8h **Extended infusion IVPB SCH ×6 (05:58→20:55)
[2019-05-06 06:58] LABS: HEMATOCRIT 38.6 % (37.0-47.0); HEMOGLOBIN 12.1 G/DL (12.0-16.0); MEAN CORPUSCULAR VOLUME 101 FL (80-99); PLATELET COUNT 73 K/UL (150-450); RED CELL DISTRIBUTION WIDTH 15.2 % (11.6-14.8); WHITE BLOOD COUNT 5.1 K/UL (4.8-10.8)
[2019-05-06 07:15] LABS: ANION GAP 11 mmol/L (5-15); BLOOD UREA NITROGEN 36 mg/dL (7-18); CALCIUM 8.7 MG/DL (8.5-10.1); CARBON DIOXIDE 24 MMOL/L (21-32); CHLORIDE 114 MMOL/L (98-107); CREATININE 1.1 MG/DL (0.55-1.30); POTASSIUM 4.2 MMOL/L (3.5-5.1); SODIUM 149 MMOL/L (136-145)
[2019-05-06] MEDS: Solu-MEDROL 40mg Inj IVP SCH (09:34)
[2019-05-06] MEDS: Pantoprazole Inj IVP SCH (09:34)
[2019-05-06] MEDS: Milk of Magnesia 30ml Ud ORAL SCH (09:34)
--- NOTE | 2019-05-06 13:24 | Infectious Diseases Prog Note ---
Assessment/Plan Assessment/Plan IMPRESSION: Pneumonia, Bacteremia Hypercapnic respiratory failure, Chronic obstructive pulmonary disease, hypertension, dementia, congestive heart failure, obesity Thrombocytopenia. Acute renal failure improving RECOMMENDATIONS: Continue vancomycin and Zosyn. We will follow up the cultures. Subjective ROS Limited/Unobtainable: Yes Neurologic: Reports: other - on restraint Allergies: Coded Allergies: No Known Allergies (Unverified , 05/04/19) Objective Vital Signs Last 24 Hour Vital Signs Date Time Temp Pulse Resp B/P (MAP) Pulse Ox O2 Delivery O2 Flow Rate FiO2 05/06/19 12:32 97 26 100 Mechanical Ventilator 30 95 21 30 05/06/19 12:00 Mechanical Ventilator 05/06/19 12:00 94 05/06/19 12:00 99.9 93 19 159/81 (107) 98 05/06/19 12:00 30 05/06/19 11:00 89 20 148/69 (95) 97 05/06/19 10:31 95 18 30 05/06/19 10:00 92 18 131/70 (90) 97 05/06/19 09:00 101 21 133/70 (91) 95 05/06/19 08:42 101 20 30 30 05/06/19 08:38 98 05/06/19 08:00 99.1 92 21 115/48 (70) 97 05/06/19 08:00 Mechanical Ventilator 05/06/19 08:00 30 05/06/19 08:00 92 05/06/19 07:00 92 18 117/55 (75) 99 05/06/19 06:52 100 22 98 Mechanical Ventilator 30 99 18 30 05/06/19 06:30 98 19 133/70 (91) 98 05/06/19 06:00 99 22 127/73 (91) 99 05/06/19 05:10 80 18 30 05/06/19 05:00 84 18 123/66 (85) 98 05/06/19 04:00 Mechanical Ventilator 05/06/19 04:00 98.4 92 18 117/59 (78) 98 05/06/19 04:00 30 05/06/19 04:00 84 05/06/19 03:00 100 19 104/56 (72) 96 05/06/19 02:47 99 19 30 05/06/19 02:00 101 19 120/60 (80) 96 05/06/19 01:34 84 05/06/19 01:00 85 18 101/53 (69) 100 05/06/19 01:00 82 18 100 Mechanical Ventilator 30 05/06/19 00:50 83 18 Mechanical Ventilator 30 30 05/06/19 00:00 30 05/06/19 00:00 Mechanical Ventilator 05/06/19 00:00 98.6 85 20 104/51 (68) 97 05/06/19 00:00 81 05/05/19 23:00 87 19 98/54 (69) 97 05/05/19 22:33 92 18 30 05/05/19 22:00 93 22 130/63 (85) 99 05/05/19 21:12 85 18 30 05/05/19 21:00 84 18 98/50 (66) 98 05/05/19 20:00 Mechanical Ventilator 05/05/19 20:00 98.0 85 18 90/49 (63) 97 05/05/19 20:00 82 05/05/19 20:00 30 05/05/19 19:15 83 18 118/75 (89) 100 05/05/19 19:12 84 18 100 Mechanical Ventilator 30 05/05/19 19:02 83 18 Mechanical Ventilator 30 30 05/05/19 19:00 85 18 110/55 (73) 99 05/05/19 17:22 90 21 115/60 (78) 99 05/05/19 17:10 84 18 30 05/05/19 17:00 82 18 119/62 (81) 99 05/05/19 16:00 98.3 90 21 115/60 (78) 99 05/05/19 16:00 Mechanical Ventilator 05/05/19 16:00 86 05/05/19 15:00 90 21 143/71 (95) 99 05/05/19 14:57 92 22 50 05/05/19 14:45 30 05/05/19 14:00 89 18 134/78 (96) 99 Height (Feet): 5 Height (Inches): 5.00 Weight (Pounds): 220 HEENT: other - orally intubated Respiratory/Chest: lungs clear, other - on ventilator Cardiovascular: normal rate Abdomen: soft, non tender, other - orogastric tube Extremities: no edema Neurologic/Psychiatric: alert, responsive Microbiology Date/Time Source Procedure Growth Status 05/04/19 17:45 Blood Blood Culture - Preliminary NO GROWTH AFTER 24 HOURS Resulted 05/04/19 17:30 Blood Blood Culture - Preliminary Resulted 05/04/19 16:20 Nasal Nares - Final Complete 05/04/19 16:20 Nasal Nares - Final Complete 05/04/19 15:40 Rectum Received Laboratory Tests Test 05/06/19 05:30 White Blood Count 5.1 K/UL (4.8-10.8) Red Blood Count 3.80 M/UL (4.20-5.40) L Hemoglobin 12.1 G/DL (12.0-16.0) Hematocrit 38.6 % (37.0-47.0) Mean Corpuscular Volume 101 FL (80-99) H Mean Corpuscular Hemoglobin 31.8 PG (27.0-31.0) H Mean Corpuscular Hemoglobin Concent 31.4 G/DL (32.0-36.0) L Red Cell Distribution Width 15.2 % (11.6-14.8) H Platelet Count 73 K/UL (150-450) L Mean Platelet Volume 9.7 FL (6.5-10.1) Neutrophils (%) (Auto) % (45.0-75.0) Lymphocytes (%) (Auto) % (20.0-45.0) Monocytes (%) (Auto) % (1.0-10.0) Eosinophils (%) (Auto) % (0.0-3.0) Basophils (%) (Auto) % (0.0-2.0) Differential Total Cells Counted 100 Neutrophils % (Manual) 71 % (45-75) Lymphocytes % (Manual) 20 % (20-45) Monocytes % (Manual) 7 % (1-10) Eosinophils % (Manual) 2 % (0-3) Basophils % (Manual) 0 % (0-2) Band Neutrophils 0 % (0-8) Platelet Estimate Decreased L Platelet Morphology Normal Hypochromasia 1+ Anisocytosis 1+ Macrocytosis 1+ Sodium Level 149 MMOL/L (136-145) H Potassium Level 4.2 MMOL/L (3.5-5.1) Chloride Level 114 MMOL/L (98-107) H Carbon Dioxide Level 24 MMOL/L (21-32) Anion Gap 11 mmol/L (5-15) Blood Urea Nitrogen 36 mg/dL (7-18) H Creatinine 1.1 MG/DL (0.55-1.30) Estimat Glomerular Filtration Rate 58.8 mL/min (>60) Glucose Level 124 MG/DL (74-106) H Calcium Level 8.7 MG/DL (8.5-10.1) Current Medications Medications (Trade) Dose Ordered Sig/Haylee Route PRN Reason Start Time Stop Time Status Last Admin Dose Admin Acetaminophen (Tylenol) 650 mg Q4H PRN ORAL Mild Pain (Pain Scale 1-3) 05/04/19 20:45 06/03/19 20:44 Acetaminophen/ Hydrocodone Bitart ([place] 5/325) 1 tab Q6H PRN ORAL PAIN 4-10 05/04/19 20:30 05/11/19 20:29 Albuterol/ Ipratropium (Albuterol/ Ipratropium) 3 ml Q6HRT HHN 05/04/19 21:00 05/09/19 20:59 05/06/19 06:52 Chlorhexidine Gluconate (Nadia-Hex 2%) 1 applic DAILY@2000 TOPIC 05/05/19 20:00 06/04/19 19:59 05/05/19 20:23 Clonidine HCl (Catapres Tab) 0.1 mg Q4H PRN ORAL SBP > OR = 160mmHg 05/04/19 20:30 06/03/19 20:29 Dextrose 1,000 ml @ 75 mls/hr [id number] IV 05/05/19 10:00 06/04/19 09:59 05/05/19 23:55 Dextrose (Dextrose 50%) 25 ml Q30M PRN IV Hypoglycemia 05/04/19 20:45 06/03/19 20:44 Dextrose (Dextrose 50%) 50 ml Q30M PRN IV Hypoglycemia 05/04/19 20:45 06/03/19 20:44 Gabapentin (Neurontin) 600 mg Q8HR ORAL 05/04/19 22:00 06/03/19 21:59 05/06/19 06:16 Haloperidol Lactate (Haldol) 5 mg Q6H PRN IM Agitation 05/05/19 15:00 06/04/19 14:59 Lorazepam (Ativan 2mg/ml 1ml) 1 mg Q2H PRN IV For Anxiety 05/05/19 15:15 05/12/19 15:14 Magnesium Hydroxide (Mom) 30 ml DAILY ORAL 05/05/19 09:00 06/04/19 08:59 05/06/19 09:34 Magnesium Hydroxide (Mom) 30 ml HSPRN PRN ORAL Constipation 05/04/19 20:45 06/03/19 20:44 Methylprednisolone Sodium Succinate (Solu-MEDROL) 40 mg DAILY IVP 05/06/19 09:00 06/05/19 08:59 05/06/19 09:34 Pantoprazole (Protonix) 40 mg DAILY IVP 05/05/19 09:00 06/04/19 08:59 05/06/19 09:34 Piperacillin Sod/ Tazobactam Sod 3.375 gm/Sodium Chloride 110 ml @ 27.5 mls/hr EVERY 8 HOURS IVPB 05/04/19 22:00 05/09/19 21:59 05/06/19 05:58 Tramadol HCl (Ultram) 50 mg Q4H PRN NG for PAIN 05/05/19 10:30 05/12/19 10:29 Vancomycin HCl (Vanco rx to dose) 1 ea DAILY PRN MISC Per rx protocol 05/04/19 23:30 06/03/19 23:29 Vancomycin HCl 500 mg/Sodium Chloride 110 ml @ 110 mls/hr Q12H IV 05/05/19 04:00 05/10/19 03:59 05/06/19 03:53 Justo Jo MD May 06, 2019 13:24
--- NOTE | 2019-05-06 14:07 | General Progress Note ---
Assessment/Plan Problem List: (1) Pneumonia ICD Codes: J18.9 - Pneumonia, unspecified organism SNOMED: 386745616 Qualifiers: Qualified Codes: J18.9 - Pneumonia, unspecified organism (2) COPD exacerbation ICD Codes: J44.1 - Chronic obstructive pulmonary disease with (acute) exacerbation SNOMED: 444572810 (3) CHF exacerbation ICD Codes: I50.9 - Heart failure, unspecified SNOMED: 941672798, [id number] Qualifiers: Qualified Codes: I50.9 - Heart failure, unspecified (4) Dementia ICD Codes: F03.90 - Unspecified dementia without behavioral disturbance SNOMED: 64422879 (5) Acute respiratory failure requiring reintubation ICD Codes: J96.00 - Acute respiratory failure, unspecified whether with hypoxia or hypercapnia SNOMED: 181685179, 115862725 (6) Acute respiratory failure with hypoxemia ICD Codes: J96.01 - Acute respiratory failure with hypoxia SNOMED: 569722839 (7) Bacteremia ICD Codes: R78.81 - Bacteremia SNOMED: 7802569 (8) Sepsis ICD Codes: A41.9 - Sepsis, unspecified organism SNOMED: 48072712 Assessment/Plan: abxs wean as tolerated Discussed with RN follow labs IV steroids Bronchodilators Subjective Allergies: Coded Allergies: No Known Allergies (Unverified , 05/04/19) Subjective seen in ICU intubated Objective Last 24 Hour Vital Signs Date Time Temp Pulse Resp B/P (MAP) Pulse Ox O2 Delivery O2 Flow Rate FiO2 05/06/19 12:32 97 26 100 Mechanical Ventilator 30 95 21 30 05/06/19 12:00 Mechanical Ventilator 05/06/19 12:00 94 05/06/19 12:00 99.9 93 19 159/81 (107) 98 05/06/19 12:00 30 05/06/19 11:00 89 20 148/69 (95) 97 05/06/19 10:31 95 18 30 05/06/19 10:00 92 18 131/70 (90) 97 05/06/19 09:00 101 21 133/70 (91) 95 05/06/19 08:42 101 20 30 30 05/06/19 08:38 98 05/06/19 08:00 99.1 92 21 115/48 (70) 97 05/06/19 08:00 Mechanical Ventilator 05/06/19 08:00 30 05/06/19 08:00 92 05/06/19 07:00 92 18 117/55 (75) 99 05/06/19 06:52 100 22 98 Mechanical Ventilator 30 99 18 30 05/06/19 06:30 98 19 133/70 (91) 98 05/06/19 06:00 99 22 127/73 (91) 99 05/06/19 05:10 80 18 30 05/06/19 05:00 84 18 123/66 (85) 98 05/06/19 04:00 Mechanical Ventilator 05/06/19 04:00 98.4 92 18 117/59 (78) 98 05/06/19 04:00 30 05/06/19 04:00 84 05/06/19 03:00 100 19 104/56 (72) 96 05/06/19 02:47 99 19 30 05/06/19 02:00 101 19 120/60 (80) 96 05/06/19 01:34 84 05/06/19 01:00 85 18 101/53 (69) 100 05/06/19 01:00 82 18 100 Mechanical Ventilator 30 05/06/19 00:50 83 18 Mechanical Ventilator 30 30 05/06/19 00:00 30 05/06/19 00:00 Mechanical Ventilator 05/06/19 00:00 98.6 85 20 104/51 (68) 97 05/06/19 00:00 81 05/05/19 23:00 87 19 98/54 (69) 97 05/05/19 22:33 92 18 30 05/05/19 22:00 93 22 130/63 (85) 99 05/05/19 21:12 85 18 30 05/05/19 21:00 84 18 98/50 (66) 98 05/05/19 20:00 Mechanical Ventilator 05/05/19 20:00 98.0 85 18 90/49 (63) 97 05/05/19 20:00 82 05/05/19 20:00 30 05/05/19 19:15 83 18 118/75 (89) 100 05/05/19 19:12 84 18 100 Mechanical Ventilator 30 05/05/19 19:02 83 18 Mechanical Ventilator 30 30 05/05/19 19:00 85 18 110/55 (73) 99 05/05/19 17:22 90 21 115/60 (78) 99 05/05/19 17:10 84 18 30 05/05/19 17:00 82 18 119/62 (81) 99 05/05/19 16:00 98.3 90 21 115/60 (78) 99 05/05/19 16:00 Mechanical Ventilator 05/05/19 16:00 86 05/05/19 15:00 90 21 143/71 (95) 99 05/05/19 14:57 92 22 50 05/05/19 14:45 30 Intake and Output 05/05/19 05/06/19 19:00 07:00 Intake Total 1536.0 ml 1728.5 ml Output Total 380 ml 690 ml Balance 1156.0 ml 1038.5 ml Free Water 260 ml 400 ml IV Total 1230.0 ml 962.5 ml Tube Feeding 46 ml 366 ml Output Urine Total 380 ml 690 ml Laboratory Tests 05/06/19 05:30: White Blood Count 5.1, Red Blood Count 3.80L, Hemoglobin 12.1, Hematocrit 38.6, Mean Corpuscular Volume 101H, Mean Corpuscular Hemoglobin 31.8H, Mean Corpuscular Hemoglobin Concent 31.4L, Red Cell Distribution Width 15.2H, Platelet Count 73L, Mean Platelet Volume 9.7, Neutrophils (%) (Auto) , Lymphocytes (%) (Auto) , Monocytes (%) (Auto) , Eosinophils (%) (Auto) , Basophils (%) (Auto) , Differential Total Cells Counted 100, Neutrophils % ( Manual) 71, Lymphocytes % (Manual) 20, Monocytes % (Manual) 7, Eosinophils % ( Manual) 2, Basophils % (Manual) 0, Band Neutrophils 0, Platelet Estimate DecreasedL, Platelet Morphology Normal, Hypochromasia 1+, Anisocytosis 1+, Macrocytosis 1+, Sodium Level 149H, Potassium Level 4.2, Chloride Level 114H, Carbon Dioxide Level 24, Anion Gap 11, Blood Urea Nitrogen 36H, Creatinine 1.1, Estimat Glomerular Filtration Rate 58.8, Glucose Level 124H, Calcium Level 8.7 Height (Feet): 5 Height (Inches): 5.00 Weight (Pounds): 220 Cardiovascular: normal rate Respiratory/Chest: rhonchi - bilaterally Edema: 2+ Generalized Jeffrey Jo MD May 06, 2019 14:07
--- NOTE | 2019-05-06 14:24 | Pulmonolgy Critical Care Note ---
Critical Care - Asmt/Plan Problems: (1) Dependence on respirator [ventilator] status (2) Respiratory distress (3) Hypercapnic acidosis (4) COPD exacerbation (5) CHF exacerbation (6) Pneumonia (7) Renal insufficiency (8) Weakness (9) Chronic paranoid schizophrenia (10) Dementia (11) H/O: CVA (cerebrovascular accident) (12) Hypernatremia (13) DANYEL (acute kidney injury) Assessment/Plan: Continue ventilatory support AC 18 TV450, 30%, PEEP5 SBT in am RTC and PRN DUOnebs SM 40 IV qDaily (D2) Abx (Zosyn/Vanco) per ID Monitor volumes and renal function, D5W per renal, PRN Lasix F/U TTE report OGTF's Minimize sedative, F/U psych recs DVT Px: Hep Sq FC, continue to discuss GOC CCT 35 D/W 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 - Objective Last 24 Hour Vital Signs Date Time Temp Pulse Resp B/P (MAP) Pulse Ox O2 Delivery O2 Flow Rate FiO2 05/06/19 14:00 96 14 180/95 (123) 98 05/06/19 13:30 97 19 173/96 (121) 96 05/06/19 13:00 96 16 168/88 (114) 97 05/06/19 12:32 97 26 100 Mechanical Ventilator 30 95 21 30 05/06/19 12:00 Mechanical Ventilator 05/06/19 12:00 94 05/06/19 12:00 99.9 93 19 159/81 (107) 98 05/06/19 12:00 30 05/06/19 11:00 89 20 148/69 (95) 97 05/06/19 10:31 95 18 30 05/06/19 10:00 92 18 131/70 (90) 97 05/06/19 09:00 101 21 133/70 (91) 95 05/06/19 08:42 101 20 30 30 05/06/19 08:38 98 05/06/19 08:00 99.1 92 21 115/48 (70) 97 05/06/19 08:00 Mechanical Ventilator 05/06/19 08:00 30 05/06/19 08:00 92 05/06/19 07:00 92 18 117/55 (75) 99 05/06/19 06:52 100 22 98 Mechanical Ventilator 30 99 18 30 05/06/19 06:30 98 19 133/70 (91) 98 05/06/19 06:00 99 22 127/73 (91) 99 05/06/19 05:10 80 18 30 05/06/19 05:00 84 18 123/66 (85) 98 05/06/19 04:00 Mechanical Ventilator 05/06/19 04:00 98.4 92 18 117/59 (78) 98 05/06/19 04:00 30 05/06/19 04:00 84 05/06/19 03:00 100 19 104/56 (72) 96 05/06/19 02:47 99 19 30 05/06/19 02:00 101 19 120/60 (80) 96 05/06/19 01:34 84 05/06/19 01:00 85 18 101/53 (69) 100 05/06/19 01:00 82 18 100 Mechanical Ventilator 30 05/06/19 00:50 83 18 Mechanical Ventilator 30 30 05/06/19 00:00 30 05/06/19 00:00 Mechanical Ventilator 05/06/19 00:00 98.6 85 20 104/51 (68) 97 05/06/19 00:00 81 05/05/19 23:00 87 19 98/54 (69) 97 05/05/19 22:33 92 18 30 05/05/19 22:00 93 22 130/63 (85) 99 05/05/19 21:12 85 18 30 05/05/19 21:00 84 18 98/50 (66) 98 05/05/19 20:00 Mechanical Ventilator 05/05/19 20:00 98.0 85 18 90/49 (63) 97 05/05/19 20:00 82 05/05/19 20:00 30 05/05/19 19:15 83 18 118/75 (89) 100 05/05/19 19:12 84 18 100 Mechanical Ventilator 30 05/05/19 19:02 83 18 Mechanical Ventilator 30 30 05/05/19 19:00 85 18 110/55 (73) 99 05/05/19 17:22 90 21 115/60 (78) 99 05/05/19 17:10 84 18 30 05/05/19 17:00 82 18 119/62 (81) 99 05/05/19 16:00 98.3 90 21 115/60 (78) 99 05/05/19 16:00 Mechanical Ventilator 05/05/19 16:00 86 05/05/19 15:00 90 21 143/71 (95) 99 05/05/19 14:57 92 22 50 05/05/19 14:45 30 Status: awake - intubated Condition: improving HEENT: atraumatic, normocephalic, other - ETT, OGT Lungs: rhonchi Heart: HR/BP stable Abdomen: soft, non-tender, active bowel sounds Extremities: no C/C/E Micro: Microbiology Date/Time Source Procedure Growth Status 05/04/19 17:45 Blood Blood Culture - Preliminary NO GROWTH AFTER 24 HOURS Resulted 05/04/19 17:30 Blood Blood Culture - Preliminary Resulted 05/04/19 16:20 Nasal Nares - Final Complete 05/04/19 16:20 Nasal Nares - Final Complete 05/04/19 15:40 Rectum Received Blood Sugars: BS controlled Critical Care - Subjective ROS Limited/Unobtainable: Yes ICU Day: 3 Intubation Day: 3 Interval Events: Failed SBT, 1/2 GPC in blood, awake and alert, no sig secretions Condition: improving IV Access: central - R fem TLC EKG Rhythm: Sinus Rhythm FI02: 30 Vent Support Breath Rate: 18 Vent Support Mode: AC Vent Tidal Volume: 450 Sputum Amount: Small PEEP: 5.0 PIP: 23 Secretions: small white secretions Fluids: D5W@75 Drips: NA Tube Feeding Amount: 33 I&O: Intake and Output 05/05/19 05/06/19 19:00 07:00 Intake Total 1536.0 ml 1738.5 ml Output Total 380 ml 690 ml Balance 1156.0 ml 1048.5 ml Free Water 260 ml 400 ml IV Total 1230.0 ml 962.5 ml Tube Feeding 46 ml 376 ml Output Urine Total 380 ml 690 ml Subjective: KEVIN ET-Tube: 7.5 ET Position: 23 Labs: Laboratory Tests Test 05/06/19 05:30 White Blood Count 5.1 K/UL (4.8-10.8) Red Blood Count 3.80 M/UL (4.20-5.40) L Hemoglobin 12.1 G/DL (12.0-16.0) Hematocrit 38.6 % (37.0-47.0) Mean Corpuscular Volume 101 FL (80-99) H Mean Corpuscular Hemoglobin 31.8 PG (27.0-31.0) H Mean Corpuscular Hemoglobin Concent 31.4 G/DL (32.0-36.0) L Red Cell Distribution Width 15.2 % (11.6-14.8) H Platelet Count 73 K/UL (150-450) L Mean Platelet Volume 9.7 FL (6.5-10.1) Neutrophils (%) (Auto) % (45.0-75.0) Lymphocytes (%) (Auto) % (20.0-45.0) Monocytes (%) (Auto) % (1.0-10.0) Eosinophils (%) (Auto) % (0.0-3.0) Basophils (%) (Auto) % (0.0-2.0) Differential Total Cells Counted 100 Neutrophils % (Manual) 71 % (45-75) Lymphocytes % (Manual) 20 % (20-45) Monocytes % (Manual) 7 % (1-10) Eosinophils % (Manual) 2 % (0-3) Basophils % (Manual) 0 % (0-2) Band Neutrophils 0 % (0-8) Platelet Estimate Decreased L Platelet Morphology Normal Hypochromasia 1+ Anisocytosis 1+ Macrocytosis 1+ Sodium Level 149 MMOL/L (136-145) H Potassium Level 4.2 MMOL/L (3.5-5.1) Chloride Level 114 MMOL/L (98-107) H Carbon Dioxide Level 24 MMOL/L (21-32) Anion Gap 11 mmol/L (5-15) Blood Urea Nitrogen 36 mg/dL (7-18) H Creatinine 1.1 MG/DL (0.55-1.30) Estimat Glomerular Filtration Rate 58.8 mL/min (>60) Glucose Level 124 MG/DL (74-106) H Calcium Level 8.7 MG/DL (8.5-10.1) Rd Li MD May 06, 2019 14:24
[2019-05-06] MEDS ORDERED: NIFEDIPINE ER30 MG ORAL (19:24)
[2019-05-06] MEDS ORDERED: METAMUCIL1 PK1 GT (19:26)
[2019-05-06] MEDS ORDERED: PANTOPRAZOLE SO40 MG ORAL (19:26)
[2019-05-06] MEDS ORDERED: SPIRIVA18 MCG INH (19:29)
[2019-05-06] MEDS ORDERED: RISPERDAL2 MG ORAL (19:29)
[2019-05-06] MEDS ORDERED: ACETAMINOPHEN325 M1 ORAL (19:29)
[2019-05-06] MEDS: Dyna-Hex 2% Top Sol 2oz TOPIC SCH (20:53)
[2019-05-07] VITALS (20 sets, daily range): BP systolic 95–174; BP diastolic 52–105
[2019-05-07] MEDS ORDERED: Vancomycin 750mg/NS 275ml IVPB SCH ×2
[2019-05-07] MEDS: Albuterol/Ipratropium 3ml neb HHN SCH ×4 (00:58→19:34)
--- NOTE | 2019-05-07 03:15 | Progress Note ---
DATE: 05/06/2019 SUBJECTIVE: The patient is much improved today. Less agitated. More manageable. MENTAL STATUS EXAMINATION: Asleep. Irritable. Mood is neutral to agitation. Affect is flat. Thought processes is concrete. Thought content, no suicidal or homicidal ideation. Cognition is impaired. Insight and judgment are impaired. ASSESSMENT: Acute encephalopathy, rule out dementia. PLAN: 1. Haldol IM. 2. I will prescribe benzodiazepine may cause more respiratory suppression pneumonia. Nati Tavera M.D. DR: MIKE JOB#: [id number] CC:
[2019-05-07] MEDS: Zosyn 3.375gm q8h **Extended infusion IVPB SCH ×4 (06:13→14:00)
[2019-05-07] MEDS: Pantoprazole Inj IVP SCH (08:25)
[2019-05-07] MEDS: Solu-MEDROL 40mg Inj IVP SCH (08:25)
--- NOTE | 2019-05-07 09:58 | Infectious Diseases Prog Note ---
Assessment/Plan Assessment/Plan IMPRESSION: Pneumonia, Positive blood culture with CoANS likely contamination Hypercapnic respiratory failure, Chronic obstructive pulmonary disease, hypertension, dementia, congestive heart failure, obesity Thrombocytopenia. Acute renal failure improving RECOMMENDATIONS: Discontinue vancomycin Continue Zosyn. We will follow up the cultures. Subjective ROS Limited/Unobtainable: Yes Respiratory: Reports: other - on weaning process Neurologic: Reports: other - on restraint Allergies: Coded Allergies: No Known Allergies (Unverified , 05/04/19) Objective Vital Signs Last 24 Hour Vital Signs Date Time Temp Pulse Resp B/P (MAP) Pulse Ox O2 Delivery O2 Flow Rate FiO2 05/07/19 08:39 93 16 30 05/07/19 08:16 98 05/07/19 08:16 30 05/07/19 08:00 30 05/07/19 08:00 90 19 137/70 (92) 98 05/07/19 08:00 Mechanical Ventilator 05/07/19 07:09 75 18 Mechanical Ventilator 30 30 05/07/19 07:00 98.5 78 20 103/56 (72) 99 05/07/19 06:00 81 22 115/58 (77) 100 05/07/19 05:18 88 18 30 05/07/19 05:00 89 19 128/68 (88) 97 05/07/19 04:00 Mechanical Ventilator 05/07/19 04:00 98.3 84 21 143/77 (99) 98 05/07/19 04:00 93 05/07/19 04:00 30 05/07/19 03:05 79 18 30 05/07/19 03:00 79 18 108/59 (75) 99 05/07/19 02:00 80 18 95/52 (66) 98 05/07/19 01:00 89 22 96/54 (68) 99 05/07/19 00:59 91 25 100 Mechanical Ventilator 30 93 25 30 05/07/19 00:00 30 05/07/19 00:00 Mechanical Ventilator 05/07/19 00:00 79 05/07/19 00:00 98.4 88 21 133/76 (95) 99 05/06/19 23:00 97 20 161/86 (111) 99 05/06/19 22:51 102 22 30 05/06/19 22:00 104 25 151/81 (104) 98 05/06/19 21:01 110 27 30 2/28/20 21:00 111 26 149/85 (106) 100 05/06/19 20:53 185/82 05/06/19 20:00 Mechanical Ventilator 05/06/19 20:00 30 05/06/19 20:00 97 05/06/19 20:00 98.6 90 17 176/102 (126) 97 05/06/19 19:00 88 18 191/104 (133) 100 05/06/19 18:58 86 21 100 Mechanical Ventilator 30 90 21 30 05/06/19 18:55 187/99 05/06/19 18:00 81 19 175/92 (119) 99 05/06/19 17:00 86 24 182/99 (126) 98 05/06/19 16:49 83 20 30 05/06/19 16:00 99.6 85 17 182/94 (123) 98 05/06/19 16:00 84 05/06/19 16:00 Mechanical Ventilator 05/06/19 16:00 30 05/06/19 15:00 94 20 163/100 (121) 96 05/06/19 14:55 180/95 05/06/19 14:34 94 24 30 05/06/19 14:00 96 14 180/95 (123) 98 05/06/19 13:30 97 19 173/96 (121) 96 05/06/19 13:00 96 16 168/88 (114) 97 05/06/19 12:32 97 26 100 Mechanical Ventilator 30 95 21 30 05/06/19 12:00 Mechanical Ventilator 05/06/19 12:00 94 05/06/19 12:00 99.9 93 19 159/81 (107) 98 05/06/19 12:00 30 05/06/19 11:00 89 20 148/69 (95) 97 05/06/19 10:31 95 18 30 05/06/19 10:00 92 18 131/70 (90) 97 Height (Feet): 5 Height (Inches): 5.00 Weight (Pounds): 220 General Appearance: no acute distress HEENT: mucous membranes moist, other - orally intubated Respiratory/Chest: lungs clear, other Cardiovascular: normal rate Abdomen: soft, non tender, other - orogastic tube Extremities: other - hands edema Neurologic/Psychiatric: alert, responsive Microbiology Date/Time Source Procedure Growth Status 05/04/19 17:45 Blood Blood Culture - Preliminary NO GROWTH AFTER 48 HOURS Resulted 05/04/19 17:30 Blood Blood Culture - Preliminary Staphylococcus Sp Coag Neg Resulted 05/04/19 16:20 Nasal Nares - Final Complete 05/04/19 16:20 Nasal Nares - Final Complete 05/04/19 15:40 Nasal Nares Left MRSA Culture - Final NO METHICILLIN RESISTANT STAPH AUREUS... Complete 05/04/19 15:40 Rectum - Final NO CARBAPENEM-RESISTANT ENTEROBACTERI... Complete 05/04/19 15:40 Rectum VRE Culture - Final NO VANCOMYCIN RESISTANT ENTEROCOCCUS ... Complete Laboratory Tests Test 05/06/19 15:20 Vancomycin Level Trough 10.0 ug/mL (5.0-12.0) Current Medications Medications (Trade) Dose Ordered Sig/Haylee Route PRN Reason Start Time Stop Time Status Last Admin Dose Admin Acetaminophen (Tylenol) 650 mg Q4H PRN ORAL Mild Pain (Pain Scale 1-3) 05/04/19 20:45 06/03/19 20:44 Acetaminophen/ Hydrocodone Bitart ([place] 5/325) 1 tab Q6H PRN ORAL PAIN 4-10 05/04/19 20:30 05/11/19 20:29 Albuterol/ Ipratropium (Albuterol/ Ipratropium) 3 ml Q6HRT HHN 05/04/19 21:00 05/09/19 20:59 05/07/19 07:11 Chlorhexidine Gluconate (Nadia-Hex 2%) 1 applic DAILY@2000 TOPIC 05/05/19 20:00 06/04/19 19:59 05/06/19 20:53 Clonidine HCl (Catapres Tab) 0.1 mg Q4H PRN ORAL SBP > OR = 160mmHg 05/04/19 20:30 06/03/19 20:29 05/06/19 18:55 Dextrose 1,000 ml @ 75 mls/hr [id number] IV 05/05/19 10:00 06/04/19 09:59 05/07/19 02:00 Dextrose (Dextrose 50%) 25 ml Q30M PRN IV Hypoglycemia 05/04/19 20:45 06/03/19 20:44 Dextrose (Dextrose 50%) 50 ml Q30M PRN IV Hypoglycemia 05/04/19 20:45 06/03/19 20:44 Gabapentin (Neurontin) 600 mg Q8HR ORAL 05/04/19 22:00 06/03/19 21:59 05/07/19 06:13 Haloperidol Lactate (Haldol) 5 mg Q6H PRN IM Agitation 05/05/19 15:00 06/04/19 14:59 Hydralazine HCl (Apresoline) 10 mg Q4H PRN IV SBP >150 05/06/19 19:21 06/05/19 19:29 05/06/19 20:53 Methylprednisolone Sodium Succinate (Solu-MEDROL) 40 mg DAILY IVP 05/06/19 09:00 06/05/19 08:59 05/07/19 08:25 Pantoprazole (Protonix) 40 mg DAILY IVP 05/05/19 09:00 06/04/19 08:59 05/07/19 08:25 Piperacillin Sod/ Tazobactam Sod 3.375 gm/Sodium Chloride 110 ml @ 27.5 mls/hr EVERY 8 HOURS IVPB 05/04/19 22:00 05/09/19 21:59 05/07/19 06:13 Tramadol HCl (Ultram) 50 mg Q4H PRN NG for PAIN 05/05/19 10:30 05/12/19 10:29 Vancomycin HCl (Vanco rx to dose) 1 ea DAILY PRN MISC Per rx protocol 05/04/19 23:30 06/03/19 23:29 Vancomycin HCl 750 mg/Sodium Chloride 275 ml @ 183.333 mls/hr Q12H IVPB 05/07/19 00:00 05/12/19 00:00 05/07/19 00:13 Justo Jo MD May 07, 2019 09:58
[2019-05-07] MEDS ORDERED: Sterile Water Irrig 1000ml IRRIG ONE (12:17)
[2019-05-07] MEDS ORDERED: Tubing IV Secondary IV ONE ×2 (12:33→12:53)
[2019-05-07] MEDS ORDERED: NS 500ML ONE ×2 (12:33→12:53)
[2019-05-07] MEDS ORDERED: NS 275ml ONE (12:47)
--- NOTE | 2019-05-07 14:21 | Pulmonolgy Critical Care Note ---
Critical Care - Asmt/Plan Problems: (1) Dependence on respirator [ventilator] status Assessment & Plan: Extubated 05/07/19 (2) Respiratory distress (3) Hypercapnic acidosis (4) COPD exacerbation (5) CHF exacerbation (6) Pneumonia (7) Renal insufficiency (8) Weakness (9) Chronic paranoid schizophrenia (10) Dementia Assessment & Plan: Stated hx but per does not have dementia and clearly verbal now although she was stated as non-verbal @ admission (11) H/O: CVA (cerebrovascular accident) (12) Hypernatremia (13) DANYEL (acute kidney injury) Assessment/Plan: Optimzie pulmonary hygiene/mobilize as tolerated RTC and PRN DUOnebs SM 40 IV qDaily (D3) Abx (Zosyn) per ID Monitor volumes and renal function, D5W per renal, PRN Lasix NPO, nursing bedside swallow, advance cautiously if she passes, formal swallow eval in am Minimize sedative, F/U psych recs DVT Px: Hep Sq FC, continue to discuss GOC CCT 35 D/W advance agent - Objective Last 24 Hour Vital Signs Date Time Temp Pulse Resp B/P (MAP) Pulse Ox O2 Delivery O2 Flow Rate FiO2 05/07/19 13:00 88 18 166/86 (112) 98 05/07/19 12:00 Mechanical Ventilator 05/07/19 12:00 98.5 92 17 166/105 (125) 100 05/07/19 12:00 10.0 40 05/07/19 12:00 88 05/07/19 11:30 10.0 40 05/07/19 11:30 98 Cool Aerosol 10.0 40 05/07/19 11:00 89 18 159/84 (109) 98 05/07/19 10:30 83 14 30 05/07/19 10:00 82 15 145/75 (98) 100 05/07/19 09:00 93 17 139/69 (92) 96 05/07/19 08:39 93 16 30 05/07/19 08:16 98 05/07/19 08:16 30 05/07/19 08:00 30 05/07/19 08:00 90 19 137/70 (92) 98 05/07/19 08:00 85 05/07/19 08:00 Mechanical Ventilator 05/07/19 07:09 75 18 100 Mechanical Ventilator 30 74 16 30 05/07/19 07:00 98.5 78 20 103/56 (72) 99 05/07/19 06:00 81 22 115/58 (77) 100 05/07/19 05:18 88 18 30 05/07/19 05:00 89 19 128/68 (88) 97 05/07/19 04:00 Mechanical Ventilator 05/07/19 04:00 98.3 84 21 143/77 (99) 98 05/07/19 04:00 93 05/07/19 04:00 30 05/07/19 03:05 79 18 30 05/07/19 03:00 79 18 108/59 (75) 99 05/07/19 02:00 80 18 95/52 (66) 98 05/07/19 01:00 89 22 96/54 (68) 99 05/07/19 00:59 91 25 100 Mechanical Ventilator 30 93 25 30 05/07/19 00:00 30 05/07/19 00:00 Mechanical Ventilator 05/07/19 00:00 79 05/07/19 00:00 98.4 88 21 133/76 (95) 99 05/06/19 23:00 97 20 161/86 (111) 99 05/06/19 22:51 102 22 30 05/06/19 22:00 104 25 151/81 (104) 98 05/06/19 21:01 110 27 30 05/06/19 21:00 111 26 149/85 (106) 100 05/06/19 20:53 185/82 05/06/19 20:00 Mechanical Ventilator 05/06/19 20:00 30 05/06/19 20:00 97 05/06/19 20:00 98.6 90 17 176/102 (126) 97 05/06/19 19:00 88 18 191/104 (133) 100 05/06/19 18:58 86 21 100 Mechanical Ventilator 30 90 21 30 05/06/19 18:55 187/99 05/06/19 18:00 81 19 175/92 (119) 99 05/06/19 17:00 86 24 182/99 (126) 98 05/06/19 16:49 83 20 30 05/06/19 16:00 99.6 85 17 182/94 (123) 98 05/06/19 16:00 84 05/06/19 16:00 Mechanical Ventilator 05/06/19 16:00 30 05/06/19 15:00 94 20 163/100 (121) 96 05/06/19 14:55 180/95 05/06/19 14:34 94 24 30 Status: awake Condition: improving HEENT: atraumatic, normocephalic Lungs: rhonchi Heart: HR/BP stable Abdomen: soft, non-tender, active bowel sounds Extremities: no C/C/E Micro: Microbiology Date/Time Source Procedure Growth Status 05/04/19 17:45 Blood Blood Culture - Preliminary NO GROWTH AFTER 48 HOURS Resulted 05/04/19 17:30 Blood Blood Culture - Preliminary Staphylococcus Sp Coag Neg Resulted 05/06/19 02:00 Sputum Gram Stain - Final Resulted 05/06/19 02:00 Sputum Sputum Culture Pending Resulted 05/04/19 16:20 Nasal Nares - Final Complete 05/04/19 16:20 Nasal Nares - Final Complete 05/04/19 15:40 Nasal Nares Left MRSA Culture - Final NO METHICILLIN RESISTANT STAPH AUREUS... Complete 05/04/19 15:40 Rectum - Final NO CARBAPENEM-RESISTANT ENTEROBACTERI... Complete 05/04/19 15:40 Rectum VRE Culture - Final NO VANCOMYCIN RESISTANT ENTEROCOCCUS ... Complete Blood Sugars: BS controlled Critical Care - Subjective ROS Limited/Unobtainable: Yes ICU Day: 4 Interval Events: Extubated this am to cool mist Awake and alert + strong cough and mobilizing Condition: improving IV Access: central - R fem TLC EKG Rhythm: Sinus Rhythm FI02: 40 Vent Support Breath Rate: 18 Vent Support Mode: CPAP Vent Tidal Volume: 450 Sputum Amount: Small PEEP: 5.0 PIP: 14 Fluids: D5W@75 Drips: None I&O: Intake and Output 05/06/19 05/07/19 19:00 07:00 Intake Total 2208.50 ml 2110.500 ml Output Total 1480 ml 1920 ml Balance 728.50 ml 190.500 ml Free Water 400 ml 400 ml IV Total 1202.50 ml 1237.500 ml Tube Feeding 506 ml 473 ml Other 100 ml Output Urine Total 1480 ml 1920 ml # Bowel Movements 2 3 Subjective: + cough no SOB no FC no NV ET-Tube: 7.5 ET Position: 23 Labs: Laboratory Tests Test 05/06/19 15:20 2/29/20 09:39 Vancomycin Level Trough 10.0 ug/mL (5.0-12.0) Arterial Blood pH 7.440 (7.350-7.450) Arterial Blood Partial Pressure CO2 43.2 mmHg (35.0-45.0) Arterial Blood Partial Pressure O2 67.2 mmHg (75.0-100.0) L Arterial Blood HCO3 28.7 mmol/L (22.0-26.0) H Arterial Blood Oxygen Saturation 93.3 % (95-100) L Arterial Blood Base Excess 4.0 (-2-2) H Hoang Test Positive Rd Li MD May 07, 2019 14:21
--- NOTE | 2019-05-07 17:44 | General Progress Note ---
Assessment/Plan Problem List: (1) Pneumonia ICD Codes: J18.9 - Pneumonia, unspecified organism SNOMED: 484633252 Qualifiers: Qualified Codes: J18.9 - Pneumonia, unspecified organism (2) COPD exacerbation ICD Codes: J44.1 - Chronic obstructive pulmonary disease with (acute) exacerbation SNOMED: 994262992 (3) CHF exacerbation ICD Codes: I50.9 - Heart failure, unspecified SNOMED: 550307652, 17592293996984 Qualifiers: Qualified Codes: I50.9 - Heart failure, unspecified (4) Dementia ICD Codes: F03.90 - Unspecified dementia without behavioral disturbance SNOMED: 87315713 (5) Acute respiratory failure requiring reintubation ICD Codes: J96.00 - Acute respiratory failure, unspecified whether with hypoxia or hypercapnia SNOMED: 936136941, 734453978 (6) Acute respiratory failure with hypoxemia ICD Codes: J96.01 - Acute respiratory failure with hypoxia SNOMED: 845164678 (7) Bacteremia ICD Codes: R78.81 - Bacteremia SNOMED: 9083288 (8) Sepsis ICD Codes: A41.9 - Sepsis, unspecified organism SNOMED: 27167678 Assessment/Plan: abxs Discussed with RN and follow labs IV steroids Bronchodilators Subjective Allergies: Coded Allergies: No Known Allergies (Unverified , 05/04/19) Subjective seen in ICU extubated Objective Last 24 Hour Vital Signs Date Time Temp Pulse Resp B/P (MAP) Pulse Ox O2 Delivery O2 Flow Rate FiO2 05/07/19 17:00 98 17 167/85 (112) 95 05/07/19 16:00 10.0 40 05/07/19 16:00 97 05/07/19 16:00 Mechanical Ventilator 2.0 05/07/19 16:00 99 18 174/87 (116) 94 05/07/19 15:00 99 12 148/83 (104) 99 05/07/19 14:00 103 14 161/80 (107) 100 05/07/19 13:31 93 20 100 Cool Aerosol 10.0 40 91 20 98 05/07/19 13:00 88 18 166/86 (112) 98 05/07/19 12:00 Mechanical Ventilator 05/07/19 12:00 98.5 92 17 166/105 (125) 100 2/29/20 12:00 10.0 40 05/07/19 12:00 88 05/07/19 11:30 10.0 40 05/07/19 11:30 98 Cool Aerosol 10.0 40 05/07/19 11:00 89 18 159/84 (109) 98 05/07/19 10:30 83 14 30 05/07/19 10:00 82 15 145/75 (98) 100 05/07/19 09:00 93 17 139/69 (92) 96 05/07/19 08:39 93 16 30 05/07/19 08:16 98 05/07/19 08:16 30 05/07/19 08:00 30 05/07/19 08:00 90 19 137/70 (92) 98 05/07/19 08:00 85 05/07/19 08:00 Mechanical Ventilator 05/07/19 07:09 75 18 100 Mechanical Ventilator 30 74 16 30 05/07/19 07:00 98.5 78 20 103/56 (72) 99 05/07/19 06:00 81 22 115/58 (77) 100 05/07/19 05:18 88 18 30 05/07/19 05:00 89 19 128/68 (88) 97 05/07/19 04:00 Mechanical Ventilator 05/07/19 04:00 98.3 84 21 143/77 (99) 98 05/07/19 04:00 93 05/07/19 04:00 30 05/07/19 03:05 79 18 30 05/07/19 03:00 79 18 108/59 (75) 99 05/07/19 02:00 80 18 95/52 (66) 98 05/07/19 01:00 89 22 96/54 (68) 99 05/07/19 00:59 91 25 100 Mechanical Ventilator 30 93 25 30 05/07/19 00:00 30 05/07/19 00:00 Mechanical Ventilator 05/07/19 00:00 79 05/07/19 00:00 98.4 88 21 133/76 (95) 99 05/06/19 23:00 97 20 161/86 (111) 99 05/06/19 22:51 102 22 30 05/06/19 22:00 104 25 151/81 (104) 98 05/06/19 21:01 110 27 30 05/06/19 21:00 111 26 149/85 (106) 100 05/06/19 20:53 185/82 05/06/19 20:00 Mechanical Ventilator 05/06/19 20:00 30 05/06/19 20:00 97 05/06/19 20:00 98.6 90 17 176/102 (126) 97 05/06/19 19:00 88 18 191/104 (133) 100 05/06/19 18:58 86 21 100 Mechanical Ventilator 30 90 21 30 05/06/19 18:55 187/99 05/06/19 18:00 81 19 175/92 (119) 99 Intake and Output 05/06/19 05/07/19 19:00 07:00 Intake Total 2208.50 ml 2110.500 ml Output Total 1480 ml 1920 ml Balance 728.50 ml 190.500 ml Free Water 400 ml 400 ml IV Total 1202.50 ml 1237.500 ml Tube Feeding 506 ml 473 ml Other 100 ml Output Urine Total 1480 ml 1920 ml # Bowel Movements 2 3 Laboratory Tests 05/07/19 09:39: Arterial Blood pH 7.440, Arterial Blood Partial Pressure CO2 43.2, Arterial Blood Partial Pressure O2 67.2L, Arterial Blood HCO3 28.7H, Arterial Blood Oxygen Saturation 93.3L, Arterial Blood Base Excess 4.0H, Hoang Test Positive Height (Feet): 5 Height (Inches): 5.00 Weight (Pounds): 220 Cardiovascular: normal rate Respiratory/Chest: lungs clear Edema: no edema noted Jeffrey Corbin MD May 07, 2019 17:44
[2019-05-07] MEDS ORDERED: Haloperidol 5mg/ml Inj IM PRN (18:45)
[2019-05-07] MEDS ORDERED: traMADol 50mg tab NG PRN (19:00)
[2019-05-07] MEDS ORDERED: Dyna-Hex 2% Top Sol 2oz TOPIC SCH (20:00)
[2019-05-07] MEDS: HYDROcodone/Acetamin 5/325 tab ORAL PRN (20:12)
[2019-05-07] MEDS: Piperacillin/Tazobactam 3.375 GM in NS 110 ML IVPB SCH (22:56)
[2019-05-08] VITALS: BP 158/101
[2019-05-08] MEDS: Albuterol/Ipratropium 3ml neb HHN SCH ×4 (01:26→19:57)
[2019-05-08 04:00] VITALS: BP 135/81
[2019-05-08] MEDS: Piperacillin/Tazobactam 3.375 GM in NS 110 ML IVPB SCH ×2 (05:13→14:21)
[2019-05-08] MEDS: HYDROcodone/Acetamin 5/325 tab ORAL PRN ×3 (05:13→22:00)
[2019-05-08 07:50] VITALS: BP 143/88
[2019-05-08] MEDS ORDERED: Pantoprazole Inj IVP SCH (09:00)
[2019-05-08] MEDS ORDERED: Solu-MEDROL 40mg Inj IVP SCH (09:00)
[2019-05-08] MEDS ORDERED: NS 275ml ONE (09:20)
[2019-05-08 12:00] VITALS: BP 152/86
--- NOTE | 2019-05-08 12:29 | General Progress Note ---
Assessment/Plan Problem List: (1) Pneumonia ICD Codes: J18.9 - Pneumonia, unspecified organism SNOMED: 880342655 Qualifiers: Qualified Codes: J18.9 - Pneumonia, unspecified organism (2) COPD exacerbation ICD Codes: J44.1 - Chronic obstructive pulmonary disease with (acute) exacerbation SNOMED: 507348014 (3) CHF exacerbation ICD Codes: I50.9 - Heart failure, unspecified SNOMED: 277492205, 28770343328581 Qualifiers: Qualified Codes: I50.9 - Heart failure, unspecified (4) Dementia ICD Codes: F03.90 - Unspecified dementia without behavioral disturbance SNOMED: 42714829 (5) Acute respiratory failure requiring reintubation ICD Codes: J96.00 - Acute respiratory failure, unspecified whether with hypoxia or hypercapnia SNOMED: 577016886, 942903221 (6) Acute respiratory failure with hypoxemia ICD Codes: J96.01 - Acute respiratory failure with hypoxia SNOMED: 064170682 (7) Bacteremia ICD Codes: R78.81 - Bacteremia SNOMED: 3597610 (8) Sepsis ICD Codes: A41.9 - Sepsis, unspecified organism SNOMED: 08000154 Assessment/Plan: abxs Discussed with RN and follow labs IV steroids Bronchodilators Subjective Allergies: Coded Allergies: No Known Allergies (Unverified , 05/04/19) Subjective doing ok Objective Last 24 Hour Vital Signs Date Time Temp Pulse Resp B/P (MAP) Pulse Ox O2 Delivery O2 Flow Rate FiO2 05/08/19 12:00 Room Air 05/08/19 08:00 Room Air 05/08/19 08:00 88 05/08/19 07:50 97.7 89 18 143/88 (106) 95 05/08/19 07:29 95 Room Air 21 05/08/19 07:29 89 18 99 Room Air 21 87 18 95 05/08/19 05:43 98.9 05/08/19 04:00 98.9 68 20 135/81 (99) 98 05/08/19 04:00 Room Air 05/08/19 04:00 84 05/08/19 01:26 73 16 100 Room Air 21 86 18 96 05/08/19 01:26 99 Room Air 21 05/08/19 00:45 158/101 05/08/19 00:00 Room Air 05/08/19 00:00 97.9 75 14 158/101 (120) 97 05/08/19 00:00 73 05/07/19 20:21 165/94 05/07/19 20:00 80 05/07/19 20:00 98.4 99 14 166/83 (110) 99 05/07/19 20:00 Room Air 05/07/19 19:36 99 Room Air 21 05/07/19 19:35 90 18 100 Room Air 21 88 22 97 05/07/19 18:00 96 17 150/84 (106) 96 05/07/19 17:00 98 17 167/85 (112) 95 05/07/19 16:00 10.0 40 05/07/19 16:00 97 05/07/19 16:00 Mechanical Ventilator 2.0 05/07/19 16:00 99 18 174/87 (116) 94 05/07/19 15:00 98.3 99 12 148/83 (104) 99 05/07/19 14:00 103 14 161/80 (107) 100 05/07/19 13:31 93 20 100 Cool Aerosol 10.0 40 91 20 98 05/07/19 13:00 88 18 166/86 (112) 98 Intake and Output 05/07/19 05/08/19 19:00 07:00 Intake Total 985.0 ml 883.75 ml Output Total 385 ml 2000 ml Balance 600.0 ml -1116.25 ml Intake Oral 200 ml 120 ml IV Total 785.0 ml 763.75 ml Output Urine Total 385 ml 2000 ml # Bowel Movements 3 2 Height (Feet): 5 Height (Inches): 5.00 Weight (Pounds): 220 Cardiovascular: normal rate Respiratory/Chest: lungs clear Edema: no edema noted Generalized Jeffrey Jo MD May 08, 2019 12:29
[2019-05-08 16:00] VITALS: BP 146/67
--- NOTE | 2019-05-08 18:19 | Pulmonology Progress Note ---
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 eval Minimize sedative, F/U psych recs DVT Px: Hep Sq FC, continue to discuss GOC Subjective Allergies: Coded Allergies: No Known Allergies (Unverified , 05/04/19) Subjective TTF AFVSS on RA marin PO awake and alert no cough no SOB no FC no CP Objective Last 24 Hour Vital Signs Date Time Temp Pulse Resp B/P (MAP) Pulse Ox O2 Delivery O2 Flow Rate FiO2 05/08/19 16:00 92 05/08/19 16:00 98.9 95 19 146/67 (93) 95 05/08/19 16:00 Room Air 05/08/19 14:40 84 18 99 Room Air 21 85 18 97 05/08/19 12:00 97.5 90 20 152/86 (108) 95 05/08/19 12:00 Room Air 05/08/19 12:00 91 05/08/19 08:00 Room Air 05/08/19 08:00 88 05/08/19 07:50 97.7 89 18 143/88 (106) 95 05/08/19 07:29 95 Room Air 21 05/08/19 07:29 89 18 99 Room Air 21 87 18 95 05/08/19 05:43 98.9 05/08/19 04:00 98.9 68 20 135/81 (99) 98 05/08/19 04:00 Room Air 05/08/19 04:00 84 05/08/19 01:26 73 16 100 Room Air 21 86 18 96 05/08/19 01:26 99 Room Air 21 05/08/19 00:45 158/101 05/08/19 00:00 Room Air 05/08/19 00:00 97.9 75 14 158/101 (120) 97 05/08/19 00:00 73 05/07/19 20:21 165/94 05/07/19 20:00 80 05/07/19 20:00 98.4 99 14 166/83 (110) 99 05/07/19 20:00 Room Air 05/07/19 19:36 99 Room Air 21 05/07/19 19:35 90 18 100 Room Air 21 88 22 97 Intake and Output 05/07/19 05/08/19 19:00 07:00 Intake Total 985.0 ml 883.75 ml Output Total 385 ml 2000 ml Balance 600.0 ml -1116.25 ml Intake Oral 200 ml 120 ml IV Total 785.0 ml 763.75 ml Output Urine Total 385 ml 2000 ml # Bowel Movements 3 2 General Appearance: WD/WN, no acute distress HEENT: normocephalic, atraumatic, anicteric, mucous membranes moist Respiratory/Chest: chest wall non-tender, lungs clear, normal breath sounds, no respiratory distress, no accessory muscle use Cardiovascular: normal peripheral pulses, normal rate, regular rhythm Abdomen: normal bowel sounds, soft, non tender, no organomegaly, non distended , no mass Extremities: no cyanosis, no clubbing, no edema Microbiology Date/Time Source Procedure Growth Status 05/06/19 02:00 Sputum Gram Stain - Final Resulted 05/06/19 02:00 Sputum Culture - Preliminary Yeast Species Usual Respiratory Marleni Resulted Current Medications Medications (Trade) Dose Ordered Sig/Haylee Route PRN Reason Start Time Stop Time Status Last Admin Dose Admin Acetaminophen (Tylenol) 650 mg Q4H PRN ORAL Mild Pain (Pain Scale 1-3) 05/07/19 18:45 06/03/19 18:44 Acetaminophen/ Hydrocodone Bitart ([place] 5/325) 1 tab Q6H PRN ORAL PAIN 4-10 05/07/19 18:45 05/11/19 18:44 05/08/19 14:23 Albuterol/ Ipratropium (Albuterol/ Ipratropium) 3 ml Q6HRT HHN 05/07/19 19:00 05/09/19 20:59 05/08/19 14:40 Chlorhexidine Gluconate (Nadia-Hex 2%) 1 applic DAILY@2000 TOPIC 05/07/19 20:00 06/04/19 19:59 05/07/19 20:10 Clonidine HCl (Catapres Tab) 0.1 mg Q4H PRN ORAL SBP > OR = 160mmHg 05/07/19 18:45 06/03/19 18:44 05/07/19 20:21 Dextrose 1,000 ml @ 75 mls/hr [id number] IV 05/07/19 18:45 06/04/19 09:59 05/08/19 05:18 Dextrose (Dextrose 50%) 25 ml Q30M PRN IV Hypoglycemia 05/07/19 19:15 06/03/19 20:44 Dextrose (Dextrose 50%) 50 ml Q30M PRN IV Hypoglycemia 05/07/19 19:15 06/03/19 20:44 Gabapentin (Neurontin) 600 mg Q8HR ORAL 05/07/19 22:00 06/03/19 21:59 05/08/19 14:21 Haloperidol Lactate (Haldol) 5 mg Q6H PRN IM Agitation 05/07/19 18:45 06/04/19 18:44 Hydralazine HCl (Apresoline) 10 mg Q4H PRN IV SBP >150 05/07/19 18:45 06/05/19 18:44 05/08/19 00:45 Methylprednisolone Sodium Succinate (Solu-MEDROL) 40 mg DAILY IVP 05/08/19 09:00 06/05/19 08:59 05/08/19 08:26 Pantoprazole (Protonix) 40 mg DAILY IVP 05/08/19 09:00 06/04/19 08:59 05/08/19 08:26 Piperacillin Sod/ Tazobactam Sod 3.375 gm/Sodium Chloride 110 ml @ 27.5 mls/hr EVERY 8 HOURS IVPB 05/07/19 22:00 05/10/19 21:59 05/08/19 14:21 Tramadol HCl (Ultram) 50 mg Q4H PRN NG for PAIN 05/07/19 19:00 05/12/19 18:59 [address] Li MD May 08, 2019 18:19
[2019-05-08] MEDS ORDERED: Haloperidol 5mg/ml Inj IM PRN (18:45)
[2019-05-08] MEDS ORDERED: traMADol 50mg tab NG PRN (19:00)
[2019-05-08 20:00] VITALS: BP 136/77
[2019-05-08] MEDS: Dyna-Hex 2% Top Sol 2oz TOPIC SCH (20:51)
[2019-05-08] MEDS: Heparin 5000 units/ml inj SUBQ SCH (20:52)
[2019-05-08] MEDS ORDERED: Heparin 5000 units/ml inj SUBQ SCH (21:00)
[2019-05-09] VITALS: BP 145/74
[2019-05-09] MEDS: Albuterol/Ipratropium 3ml neb HHN SCH ×4 (00:56→19:21)
[2019-05-09 04:00] VITALS: BP 137/75
[2019-05-09 08:00] VITALS: BP 143/79
[2019-05-09] MEDS ORDERED: Pantoprazole Inj IVP SCH (09:00)
[2019-05-09] MEDS: Heparin 5000 units/ml inj SUBQ SCH ×2 (10:13→20:30)
--- NOTE | 2019-05-09 11:16 | Infectious Diseases Prog Note ---
Assessment/Plan Assessment/Plan IMPRESSION: Pneumonia, Positive blood culture with CoANS likely contamination Hypercapnic respiratory failure, Chronic obstructive pulmonary disease, hypertension, dementia, congestive heart failure, obesity Thrombocytopenia. Acute renal failure improving RECOMMENDATIONS: Continue Zosyn. We will follow up the cultures. Subjective ROS Limited/Unobtainable: No Constitutional: Reports: other - Doing better, transferred from ICU to telemetry Respiratory: Reports: productive cough Cardiovascular: Reports: no symptoms Gastrointestinal/Abdominal: Reports: no symptoms Genitourinary: Reports: no symptoms Musculoskeletal: Reports: pain, other - neck Allergies: Coded Allergies: No Known Allergies (Unverified , 05/04/19) Objective Vital Signs Last 24 Hour Vital Signs Date Time Temp Pulse Resp B/P (MAP) Pulse Ox O2 Delivery O2 Flow Rate FiO2 05/09/19 08:07 94 Room Air 21 05/09/19 08:07 81 20 99 Room Air 21 82 20 94 05/09/19 08:00 93.0 93 20 143/79 (100) 94 05/09/19 08:00 97 05/09/19 04:00 98.2 84 17 137/75 (95) 95 05/09/19 04:00 92 05/09/19 00:56 85 18 100 Room Air 21 83 18 96 05/09/19 00:00 85 05/09/19 00:00 98.1 86 15 145/74 (97) 96 05/08/19 21:00 Room Air 05/08/19 20:00 98.1 88 17 136/77 (96) 93 05/08/19 20:00 86 05/08/19 19:55 95 Room Air 21 05/08/19 19:55 86 18 99 Room Air 21 86 18 95 05/08/19 16:00 92 05/08/19 16:00 98.9 95 19 146/67 (93) 95 05/08/19 16:00 Room Air 05/08/19 14:40 84 18 99 Room Air 21 85 18 97 05/08/19 12:00 97.5 90 20 152/86 (108) 95 05/08/19 12:00 Room Air 05/08/19 12:00 91 Height (Feet): 5 Height (Inches): 5.00 Weight (Pounds): 220 HEENT: mucous membranes moist, other - poor dentition Respiratory/Chest: lungs clear Cardiovascular: normal rate Abdomen: soft, non tender Extremities: no edema Neurologic/Psychiatric: alert, oriented x 3, responsive Current Medications Medications (Trade) Dose Ordered Sig/Haylee Route PRN Reason Start Time Stop Time Status Last Admin Dose Admin Acetaminophen (Tylenol) 650 mg Q4H PRN ORAL Mild Pain (Pain Scale 1-3) 05/08/19 18:45 06/03/19 18:44 Acetaminophen/ Hydrocodone Bitart ([place] 5/325) 1 tab Q6H PRN ORAL PAIN 4-10 05/08/19 18:45 05/11/19 18:44 05/08/19 22:00 Albuterol/ Ipratropium (Albuterol/ Ipratropium) 3 ml Q6HRT HHN 05/08/19 19:00 05/09/19 20:59 05/09/19 08:07 Chlorhexidine Gluconate (Nadia-Hex 2%) 1 applic DAILY@2000 TOPIC 05/08/19 20:00 06/04/19 19:59 05/08/19 20:51 Clonidine HCl (Catapres Tab) 0.1 mg Q4H PRN ORAL SBP > OR = 160mmHg 05/08/19 18:45 06/03/19 18:44 Dextrose 1,000 ml @ 75 mls/hr [id number] IV 05/08/19 18:45 06/04/19 09:59 05/08/19 20:21 Dextrose (Dextrose 50%) 25 ml Q30M PRN IV Hypoglycemia 05/08/19 18:45 06/03/19 20:44 Dextrose (Dextrose 50%) 50 ml Q30M PRN IV Hypoglycemia 05/08/19 18:45 06/03/19 20:44 Gabapentin (Neurontin) 600 mg Q8HR ORAL 05/08/19 22:00 06/03/19 21:59 05/09/19 05:58 Haloperidol Lactate (Haldol) 5 mg Q6H PRN IM Agitation 05/08/19 18:45 06/04/19 18:44 Heparin Sodium (Porcine) (Heparin 5000 units/ml) 5,000 units EVERY 12 HOURS SUBQ 05/08/19 21:00 06/07/19 20:59 Hydralazine HCl (Apresoline) 10 mg Q4H PRN IV SBP >150 05/08/19 18:45 06/05/19 18:44 Pantoprazole (Protonix) 40 mg DAILY IVP 05/09/19 09:00 06/04/19 08:59 05/09/19 10:13 Prednisone (predniSONE) 40 mg DAILY ORAL 05/09/19 09:00 06/08/19 08:59 05/09/19 10:12 Tramadol HCl (Ultram) 50 mg Q4H PRN NG for PAIN 05/08/19 19:00 05/12/19 18:59 Justo Jo MD May 09, 2019 11:16
[2019-05-09 12:00] VITALS: BP 147/73
[2019-05-09] MEDS: HYDROcodone/Acetamin 5/325 tab ORAL PRN ×2 (13:09→20:30)
--- NOTE | 2019-05-09 13:52 | Pulmonology Progress Note ---
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 Minimize sedative, F/U psych recs DVT Px: Hep Sq FC, continue to discuss GOC Subjective Allergies: Coded Allergies: No Known Allergies (Unverified , 05/04/19) Subjective NAEO AFVSS on RA marin PO awake and alert no cough no SOB no FC no CP Objective Last 24 Hour Vital Signs Date Time Temp Pulse Resp B/P (MAP) Pulse Ox O2 Delivery O2 Flow Rate FiO2 05/09/19 09:00 Room Air 05/09/19 08:07 94 Room Air 05/09/19 08:07 81 20 99 Room Air 21 82 20 94 05/09/19 08:00 93.0 93 20 143/79 (100) 94 05/09/19 08:00 97 05/09/19 04:00 98.2 84 17 137/75 (95) 95 05/09/19 04:00 92 05/09/19 00:56 85 18 100 Room Air 21 83 18 96 05/09/19 00:00 85 05/09/19 00:00 98.1 86 15 145/74 (97) 96 05/08/19 21:00 Room Air 05/08/19 20:00 98.1 88 17 136/77 (96) 93 05/08/19 20:00 86 05/08/19 19:55 95 Room Air 21 05/08/19 19:55 86 18 99 Room Air 21 86 18 95 05/08/19 16:00 92 05/08/19 16:00 98.9 95 19 146/67 (93) 95 05/08/19 16:00 Room Air 05/08/19 14:40 84 18 99 Room Air 21 85 18 97 Intake and Output 05/08/19 05/09/19 19:00 07:00 Intake Total 960.0 ml 1285 ml Output Total 800 ml 600 ml Balance 160.0 ml 685 ml Intake Oral 250 ml 480 ml IV Total 710.0 ml 805 ml Output Urine Total 800 ml 600 ml # Voids 1 General Appearance: no acute distress, cachetic HEENT: normocephalic, atraumatic, anicteric, mucous membranes moist Respiratory/Chest: chest wall non-tender, lungs clear, normal breath sounds, no respiratory distress, no accessory muscle use Cardiovascular: normal peripheral pulses, normal rate, regular rhythm Abdomen: normal bowel sounds, soft, non tender, no organomegaly, non distended , no mass Extremities: no cyanosis, no clubbing, no edema Current Medications Medications (Trade) Dose Ordered Sig/Haylee Route PRN Reason Start Time Stop Time Status Last Admin Dose Admin Acetaminophen (Tylenol) 650 mg Q4H PRN ORAL Mild Pain (Pain Scale 1-3) 05/08/19 18:45 06/03/19 18:44 Acetaminophen/ Hydrocodone Bitart ([place] 5/325) 1 tab Q6H PRN ORAL PAIN 4-10 05/08/19 18:45 05/11/19 18:44 05/09/19 13:09 Albuterol/ Ipratropium (Albuterol/ Ipratropium) 3 ml Q6HRT HHN 05/08/19 19:00 05/09/19 20:59 05/09/19 08:07 Chlorhexidine Gluconate (Nadia-Hex 2%) 1 applic DAILY@2000 TOPIC 05/08/19 20:00 06/04/19 19:59 05/08/19 20:51 Clonidine HCl (Catapres Tab) 0.1 mg Q4H PRN ORAL SBP > OR = 160mmHg 05/08/19 18:45 06/03/19 18:44 Dextrose 1,000 ml @ 75 mls/hr [id number] IV 05/08/19 18:45 06/04/19 09:59 05/08/19 20:21 Dextrose (Dextrose 50%) 25 ml Q30M PRN IV Hypoglycemia 05/08/19 18:45 06/03/19 20:44 Dextrose (Dextrose 50%) 50 ml Q30M PRN IV Hypoglycemia 05/08/19 18:45 06/03/19 20:44 Gabapentin (Neurontin) 600 mg Q8HR ORAL 05/08/19 22:00 06/03/19 21:59 05/09/19 13:05 Haloperidol Lactate (Haldol) 5 mg Q6H PRN IM Agitation 05/08/19 18:45 06/04/19 18:44 Heparin Sodium (Porcine) (Heparin 5000 units/ml) 5,000 units EVERY 12 HOURS SUBQ 05/08/19 21:00 06/07/19 20:59 Hydralazine HCl (Apresoline) 10 mg Q4H PRN IV SBP >150 05/08/19 18:45 06/05/19 18:44 Pantoprazole (Protonix) 40 mg DAILY IVP 05/09/19 09:00 06/04/19 08:59 05/09/19 10:13 Prednisone (predniSONE) 40 mg DAILY ORAL 05/09/19 09:00 06/08/19 08:59 05/09/19 10:12 Tramadol HCl (Ultram) 50 mg Q4H PRN NG for PAIN 05/08/19 19:00 05/12/19 18:59 Rd Li MD May 09, 2019 13:52
--- NOTE | 2019-05-09 15:20 | General Progress Note ---
Assessment/Plan Problem List: (1) Pneumonia ICD Codes: J18.9 - Pneumonia, unspecified organism SNOMED: 736370336 Qualifiers: Qualified Codes: J18.9 - Pneumonia, unspecified organism (2) COPD exacerbation ICD Codes: J44.1 - Chronic obstructive pulmonary disease with (acute) exacerbation SNOMED: 280774646 (3) CHF exacerbation ICD Codes: I50.9 - Heart failure, unspecified SNOMED: 254660580, 01685909680734 Qualifiers: Qualified Codes: I50.9 - Heart failure, unspecified (4) Dementia ICD Codes: F03.90 - Unspecified dementia without behavioral disturbance SNOMED: 76734841 (5) Acute respiratory failure requiring reintubation ICD Codes: J96.00 - Acute respiratory failure, unspecified whether with hypoxia or hypercapnia SNOMED: 433209417, 972227186 (6) Acute respiratory failure with hypoxemia ICD Codes: J96.01 - Acute respiratory failure with hypoxia SNOMED: 702501027 (7) Bacteremia ICD Codes: R78.81 - Bacteremia SNOMED: 7507926 (8) Sepsis ICD Codes: A41.9 - Sepsis, unspecified organism SNOMED: 96869876 Assessment/Plan: abxs Discussed with RN and follow labs IV steroids Bronchodilators Discussed with telephonic case manager Time spent 35 min Subjective Allergies: Coded Allergies: No Known Allergies (Unverified , 05/04/19) Subjective doing ok Objective Last 24 Hour Vital Signs Date Time Temp Pulse Resp B/P (MAP) Pulse Ox O2 Delivery O2 Flow Rate FiO2 05/09/19 13:49 83 20 97 Room Air 21 82 20 93 05/09/19 09:00 Room Air 05/09/19 08:07 94 Room Air 21 05/09/19 08:07 81 20 99 Room Air 21 82 20 94 05/09/19 08:00 93.0 93 20 143/79 (100) 94 05/09/19 08:00 97 05/09/19 04:00 98.2 84 17 137/75 (95) 95 05/09/19 04:00 92 05/09/19 00:56 85 18 100 Room Air 21 83 18 96 05/09/19 00:00 85 05/09/19 00:00 98.1 86 15 145/74 (97) 96 05/08/19 21:00 Room Air 05/08/19 20:00 98.1 88 17 136/77 (96) 93 05/08/19 20:00 86 05/08/19 19:55 95 Room Air 21 05/08/19 19:55 86 18 99 Room Air 21 86 18 95 05/08/19 16:00 92 05/08/19 16:00 98.9 95 19 146/67 (93) 95 05/08/19 16:00 Room Air Intake and Output 05/08/19 05/09/19 19:00 07:00 Intake Total 960.0 ml 1285 ml Output Total 800 ml 600 ml Balance 160.0 ml 685 ml Intake Oral 250 ml 480 ml IV Total 710.0 ml 805 ml Output Urine Total 800 ml 600 ml # Voids 1 Height (Feet): 5 Height (Inches): 5.00 Weight (Pounds): 220 Cardiovascular: normal rate Respiratory/Chest: lungs clear Edema: 1+ Generalized Jeffrey Jo MD May 09, 2019 15:20
[2019-05-09 16:00] VITALS: BP 139/86
[2019-05-09 20:00] VITALS: BP 142/74
[2019-05-09] MEDS: Dyna-Hex 2% Top Sol 2oz TOPIC SCH (20:30)
[2019-05-10] VITALS (7 sets, daily range): BP systolic 136–192; BP diastolic 78–116
--- NOTE | 2019-05-10 01:45 | Progress Note ---
DATE: 05/09/2019 SUBJECTIVE: The patient is in bed and more alert and still has episodes of anxiety however improving. More responsive. Compliant. MENTAL STATUS EXAMINATION: The patient is alert and oriented times self and place. Mood is neutral. Affect is flat. Thought process is concrete. Thought content, no suicidal or homicidal ideation. Cognition is impaired. Insight and judgment is impaired. ASSESSMENT: 1. Acute encephalopathy. 2. Rule out dementia. PLAN: 1. Haldol p.r.n. 2. Continue to follow and readjust the medication. Nati Tavera M.D. DR: MOHIT JOB#: [id number] CC:
--- NOTE | 2019-05-10 08:13 | Pulmonology Progress Note ---
Assessment/Plan Problems: (1) COPD exacerbation (2) Dementia (3) Weakness (4) CHF exacerbation (5) Pneumonia (6) Hypercapnic acidosis (7) Renal insufficiency (8) H/O: CVA (cerebrovascular accident) Assessment/Plan Optimzie pulmonary hygiene/mobilize as tolerated RTC and PRN DUOnebs S/P 5 days of steroids, observe off steroids Abx (Zosyn) per ID Monitor volumes and renal function, D5W per renal, PRN Lasix Aspiration precautions, SCOOPER recs Minimize sedative, F/U psych recs DVT Px: Hep Sq FC, continue to discuss GOC Subjective Allergies: Coded Allergies: No Known Allergies (Unverified , 05/04/19) Subjective NAEO AFVSS on RA marin PO awake and alert no cough no SOB no FC no CP Objective Last 24 Hour Vital Signs Date Time Temp Pulse Resp B/P (MAP) Pulse Ox O2 Delivery O2 Flow Rate FiO2 05/10/19 05:00 84 154/87 (109) 05/10/19 04:38 192/96 05/10/19 04:00 98.5 81 17 192/96 (128) 95 05/10/19 04:00 76 05/10/19 00:00 80 05/10/19 00:00 98.2 91 16 148/78 (101) 95 05/09/19 21:00 Room Air 05/09/19 20:00 99 05/09/19 20:00 98.1 101 17 142/74 (96) 94 05/09/19 19:31 90 20 99 Room Air 21 05/09/19 19:21 90 20 94 Room Air 21 05/09/19 19:21 94 Room Air 21 05/09/19 16:00 99.3 98 20 139/86 (103) 96 05/09/19 16:00 100 05/09/19 13:49 83 20 97 Room Air 21 82 20 93 05/09/19 13:03 97 05/09/19 12:00 98.1 90 20 147/73 (97) 95 05/09/19 09:00 Room Air Intake and Output 05/09/19 05/10/19 19:00 07:00 Intake Total 716 ml 360 ml Output Total 1050 ml 1200 ml Balance -334 ml -840 ml Intake Oral 716 ml 360 ml Output Urine Total 1050 ml 1200 ml # Voids 1 # Bowel Movements 1 General Appearance: no acute distress, cachetic HEENT: normocephalic, atraumatic, anicteric, mucous membranes moist Respiratory/Chest: chest wall non-tender, lungs clear, normal breath sounds, no respiratory distress, no accessory muscle use Cardiovascular: normal peripheral pulses, normal rate, regular rhythm Abdomen: normal bowel sounds, soft, non tender, no organomegaly, non distended , no mass Extremities: no cyanosis, no clubbing, no edema Current Medications Medications (Trade) Dose Ordered Sig/Haylee Route PRN Reason Start Time Stop Time Status Last Admin Dose Admin Acetaminophen (Tylenol) 650 mg Q4H PRN ORAL Mild Pain (Pain Scale 1-3) 05/08/19 18:45 06/03/19 18:44 Acetaminophen/ Hydrocodone Bitart ([place] 5/325) 1 tab Q6H PRN ORAL PAIN 4-10 05/08/19 18:45 05/11/19 18:44 05/09/19 20:30 Chlorhexidine Gluconate (Nadia-Hex 2%) 1 applic DAILY@2000 TOPIC 05/08/19 20:00 06/04/19 19:59 05/09/19 20:30 Clonidine HCl (Catapres Tab) 0.1 mg Q4H PRN ORAL SBP > OR = 160mmHg 05/08/19 18:45 06/03/19 18:44 05/10/19 04:38 Dextrose 1,000 ml @ 75 mls/hr [id number] IV 05/08/19 18:45 06/04/19 09:59 05/08/19 20:21 Dextrose (Dextrose 50%) 25 ml Q30M PRN IV Hypoglycemia 05/08/19 18:45 06/03/19 20:44 Dextrose (Dextrose 50%) 50 ml Q30M PRN IV Hypoglycemia 05/08/19 18:45 06/03/19 20:44 Gabapentin (Neurontin) 600 mg Q8HR ORAL 05/08/19 22:00 06/03/19 21:59 05/10/19 05:50 Haloperidol Lactate (Haldol) 5 mg Q6H PRN IM Agitation 05/08/19 18:45 06/04/19 18:44 Heparin Sodium (Porcine) (Heparin 5000 units/ml) 5,000 units EVERY 12 HOURS SUBQ 05/08/19 21:00 06/07/19 20:59 Hydralazine HCl (Apresoline) 10 mg Q4H PRN IV SBP >150 05/08/19 18:45 06/05/19 18:44 Pantoprazole (Protonix) 40 mg ACBREAKFAST ORAL 05/10/19 06:30 06/09/19 06:29 05/10/19 05:50 Prednisone (predniSONE) 40 mg DAILY ORAL 05/09/19 09:00 06/08/19 08:59 05/09/19 10:12 Tramadol HCl (Ultram) 50 mg Q4H PRN NG for PAIN 05/08/19 19:00 05/12/19 18:59 [address] Li MD May 10, 2019 08:12
[2019-05-10] MEDS: Heparin 5000 units/ml inj SUBQ SCH ×2 (09:00→20:30)
[2019-05-10] MEDS: HYDROcodone/Acetamin 5/325 tab ORAL PRN ×2 (09:43→20:30)
--- NOTE | 2019-05-10 12:03 | Infectious Diseases Prog Note ---
Assessment/Plan Assessment/Plan IMPRESSION: Pneumonia, Positive blood culture with CoANS likely contamination Hypercapnic respiratory failure, Chronic obstructive pulmonary disease, hypertension, dementia, congestive heart failure, obesity Thrombocytopenia. Acute renal failure improving RECOMMENDATIONS: Continue Zosyn until tomorrow We will follow up the cultures. Subjective ROS Limited/Unobtainable: No Constitutional: Reports: no symptoms, other - feels better Respiratory: Reports: productive cough Cardiovascular: Reports: no symptoms Gastrointestinal/Abdominal: Reports: no symptoms Genitourinary: Reports: no symptoms Allergies: Coded Allergies: No Known Allergies (Unverified , 05/04/19) Objective Vital Signs Last 24 Hour Vital Signs Date Time Temp Pulse Resp B/P (MAP) Pulse Ox O2 Delivery O2 Flow Rate FiO2 05/10/19 08:00 98.1 87 20 145/91 (109) 99 05/10/19 05:00 84 154/87 (109) 05/10/19 04:38 192/96 05/10/19 04:00 98.5 81 17 192/96 (128) 95 05/10/19 04:00 76 05/10/19 00:00 80 05/10/19 00:00 98.2 91 16 148/78 (101) 95 05/09/19 21:00 Room Air 05/09/19 20:00 99 05/09/19 20:00 98.1 101 17 142/74 (96) 94 05/09/19 19:31 90 20 99 Room Air 21 05/09/19 19:21 90 20 94 Room Air 21 05/09/19 19:21 94 Room Air 21 05/09/19 16:00 99.3 98 20 139/86 (103) 96 05/09/19 16:00 100 05/09/19 13:49 83 20 97 Room Air 21 82 20 93 05/09/19 13:03 97 Height (Feet): 5 Height (Inches): 5.00 Weight (Pounds): 220 General Appearance: no acute distress HEENT: mucous membranes moist, other - no teeth Cardiovascular: normal rate Abdomen: soft, non tender Extremities: no edema Neurologic/Psychiatric: alert, oriented x 3, responsive Current Medications Medications (Trade) Dose Ordered Sig/Haylee Route PRN Reason Start Time Stop Time Status Last Admin Dose Admin Acetaminophen (Tylenol) 650 mg Q4H PRN ORAL Mild Pain (Pain Scale 1-3) 05/08/19 18:45 06/03/19 18:44 Acetaminophen/ Hydrocodone Bitart ([place] 5/325) 1 tab Q6H PRN ORAL PAIN 4-10 05/08/19 18:45 05/11/19 18:44 05/10/19 09:43 Chlorhexidine Gluconate (Nadia-Hex 2%) 1 applic DAILY@2000 TOPIC 05/08/19 20:00 06/04/19 19:59 05/09/19 20:30 Clonidine HCl (Catapres Tab) 0.1 mg Q4H PRN ORAL SBP > OR = 160mmHg 05/08/19 18:45 06/03/19 18:44 05/10/19 04:38 Dextrose 1,000 ml @ 75 mls/hr [id number] IV 05/08/19 18:45 06/04/19 09:59 05/10/19 11:12 Dextrose (Dextrose 50%) 25 ml Q30M PRN IV Hypoglycemia 05/08/19 18:45 06/03/19 20:44 Dextrose (Dextrose 50%) 50 ml Q30M PRN IV Hypoglycemia 05/08/19 18:45 06/03/19 20:44 Gabapentin (Neurontin) 600 mg Q8HR ORAL 05/08/19 22:00 06/03/19 21:59 05/10/19 05:50 Haloperidol Lactate (Haldol) 5 mg Q6H PRN IM Agitation 05/08/19 18:45 06/04/19 18:44 Heparin Sodium (Porcine) (Heparin 5000 units/ml) 5,000 units EVERY 12 HOURS SUBQ 05/08/19 21:00 06/07/19 20:59 Hydralazine HCl (Apresoline) 10 mg Q4H PRN IV SBP >150 05/08/19 18:45 06/05/19 18:44 Pantoprazole (Protonix) 40 mg ACBREAKFAST ORAL 05/10/19 06:30 06/09/19 06:29 05/10/19 05:50 Tramadol HCl (Ultram) 50 mg Q4H PRN NG for PAIN 05/08/19 19:00 05/12/19 18:59 Justo Jo MD May 10, 2019 12:03
--- NOTE | 2019-05-10 14:52 | General Progress Note ---
Assessment/Plan Problem List: (1) Pneumonia ICD Codes: J18.9 - Pneumonia, unspecified organism SNOMED: 823568675 Qualifiers: Qualified Codes: J18.9 - Pneumonia, unspecified organism (2) COPD exacerbation ICD Codes: J44.1 - Chronic obstructive pulmonary disease with (acute) exacerbation SNOMED: 450006352 (3) CHF exacerbation ICD Codes: I50.9 - Heart failure, unspecified SNOMED: 279317931, 14717065527956 Qualifiers: Qualified Codes: I50.9 - Heart failure, unspecified (4) Dementia ICD Codes: F03.90 - Unspecified dementia without behavioral disturbance SNOMED: 20287064 (5) Acute respiratory failure requiring reintubation ICD Codes: J96.00 - Acute respiratory failure, unspecified whether with hypoxia or hypercapnia SNOMED: 280789120, 169593713 (6) Acute respiratory failure with hypoxemia ICD Codes: J96.01 - Acute respiratory failure with hypoxia SNOMED: 393649725 (7) Bacteremia ICD Codes: R78.81 - Bacteremia SNOMED: 4655967 (8) Sepsis ICD Codes: A41.9 - Sepsis, unspecified organism SNOMED: 80401091 Assessment/Plan: Discussed with RN Bronchodilators Dc planning Subjective Allergies: Coded Allergies: No Known Allergies (Unverified , 05/04/19) Subjective doing ok Objective Last 24 Hour Vital Signs Date Time Temp Pulse Resp B/P (MAP) Pulse Ox O2 Delivery O2 Flow Rate FiO2 05/10/19 08:00 98.1 87 20 145/91 (109) 99 05/10/19 05:00 84 154/87 (109) 05/10/19 04:38 192/96 05/10/19 04:00 98.5 81 17 192/96 (128) 95 05/10/19 04:00 76 05/10/19 00:00 80 05/10/19 00:00 98.2 91 16 148/78 (101) 95 05/09/19 21:00 Room Air 05/09/19 20:00 99 05/09/19 20:00 98.1 101 17 142/74 (96) 94 05/09/19 19:31 90 20 99 Room Air 21 05/09/19 19:21 90 20 94 Room Air 21 05/09/19 19:21 94 Room Air 21 05/09/19 16:00 99.3 98 20 139/86 (103) 96 05/09/19 16:00 100 Intake and Output 05/09/19 05/10/19 19:00 07:00 Intake Total 716 ml 360 ml Output Total 1050 ml 1200 ml Balance -334 ml -840 ml Intake Oral 716 ml 360 ml Output Urine Total 1050 ml 1200 ml # Voids 1 # Bowel Movements 1 Height (Feet): 5 Height (Inches): 5.00 Weight (Pounds): 220 Cardiovascular: normal rate Respiratory/Chest: lungs clear Edema: no edema noted Generalized Jeffrey Jo MD May 10, 2019 14:52
[2019-05-10] MEDS: Dyna-Hex 2% Top Sol 2oz TOPIC SCH (20:29)
[2019-05-11] VITALS: BP 139/86
[2019-05-11] MEDS: oxyCODONE HCL/Acetaminophen 5/325mg ORAL PRN ×3 (02:07→11:32)
--- NOTE | 2019-05-11 03:30 | Progress Note ---
DATE: 05/10/2019 SUBJECTIVE: The patient much improved. Able to answer the questions. The patient is improving and is not having any agitation. MENTAL STATUS EXAMINATION: The patient is alert and oriented times self and place. Knew that it is 2020. Mood is anxious. Affect is flat. Thought process is concrete. Thought content, no suicidal or homicidal ideation. Cognition is impaired. Insight and judgment are improving. ASSESSMENT: 1. Acute encephalopathy, improving. 2. Rule out vascular dementia. PLAN: Haldol p.r.n. only. No other psychotropics. Nati Tavera M.D. DR: VINCENT JOB#: [id number] CC:
[2019-05-11 04:00] VITALS: BP 153/97
[2019-05-11 08:15] VITALS: BP 155/90
[2019-05-11] MEDS: Heparin 5000 units/ml inj SUBQ SCH (09:00)
[2019-05-11] MEDS ORDERED: PERCOCET1 TAB ORAL (09:46)
--- NOTE | 2019-05-11 09:48 | General Progress Note ---
Assessment/Plan Problem List: (1) Pneumonia ICD Codes: J18.9 - Pneumonia, unspecified organism SNOMED: 260801714 Qualifiers: Qualified Codes: J18.9 - Pneumonia, unspecified organism (2) COPD exacerbation ICD Codes: J44.1 - Chronic obstructive pulmonary disease with (acute) exacerbation SNOMED: 971488004 (3) CHF exacerbation ICD Codes: I50.9 - Heart failure, unspecified SNOMED: 162198220, 53723223301030 Qualifiers: Qualified Codes: I50.9 - Heart failure, unspecified (4) Dementia ICD Codes: F03.90 - Unspecified dementia without behavioral disturbance SNOMED: 44886186 (5) Acute respiratory failure requiring reintubation ICD Codes: J96.00 - Acute respiratory failure, unspecified whether with hypoxia or hypercapnia SNOMED: 260585898, 415414912 (6) Acute respiratory failure with hypoxemia ICD Codes: J96.01 - Acute respiratory failure with hypoxia SNOMED: 141830076 (7) Bacteremia ICD Codes: R78.81 - Bacteremia SNOMED: 1385996 (8) Sepsis ICD Codes: A41.9 - Sepsis, unspecified organism SNOMED: 78207791 Assessment/Plan: cont as is DC today Subjective Allergies: Coded Allergies: No Known Allergies (Unverified , 05/04/19) Subjective doing ok Objective Last 24 Hour Vital Signs Date Time Temp Pulse Resp B/P (MAP) Pulse Ox O2 Delivery O2 Flow Rate FiO2 05/11/19 08:15 96.9 107 20 155/90 (111) 95 05/11/19 06:44 98.2 05/11/19 04:00 98 05/11/19 04:00 98.2 103 20 153/97 (115) 88 05/11/19 00:00 97.2 103 19 139/86 (103) 96 05/11/19 00:00 113 05/10/19 21:00 Nasal Cannula 1.0 05/10/19 20:40 95 Room Air 21 05/10/19 20:00 118 05/10/19 20:00 97.5 107 18 136/84 (101) 95 05/10/19 16:01 175/116 05/10/19 16:00 98 05/10/19 16:00 97.3 97 22 184/116 (138) 93 05/10/19 12:00 98.1 82 20 154/108 (123) 94 05/10/19 12:00 87 Intake and Output 05/10/19 05/11/19 19:00 07:00 Intake Total 237 ml Output Total 1200 ml Balance -963 ml Intake Oral 237 ml Output Urine Total 1200 ml # Voids 1 1 # Bowel Movements 2 Height (Feet): 5 Height (Inches): 5.00 Weight (Pounds): 220 Cardiovascular: normal rate Respiratory/Chest: lungs clear Jeffrey Jo MD May 11, 2019 09:48
[2019-05-11 12:00] VITALS: BP 132/89
--- NOTE | 2019-05-11 12:16 | Pulmonology Progress Note ---
Assessment/Plan Problems: (1) COPD exacerbation (2) Dementia (3) Weakness (4) CHF exacerbation (5) Pneumonia (6) Hypercapnic acidosis (7) Renal insufficiency (8) H/O: CVA (cerebrovascular accident) Assessment/Plan Optimzie pulmonary hygiene/mobilize as tolerated RTC and PRN DUOnebs S/P 5 days of steroids, observe off steroids Observe off Abx per ID Monitor volumes and renal function Aspiration precautions, CARBURIZER recs Minimize sedative, F/U psych recs DVT Px: Hep Sq FC, continue to discuss GOC Subjective Allergies: Coded Allergies: No Known Allergies (Unverified , 05/04/19) Subjective NAEO AFVSS on RA marin PO awake and alert no cough no SOB no FC no CP Objective Last 24 Hour Vital Signs Date Time Temp Pulse Resp B/P (MAP) Pulse Ox O2 Delivery O2 Flow Rate FiO2 05/11/19 12:00 97.7 114 20 132/89 (103) 95 05/11/19 09:00 Nasal Cannula 1.0 05/11/19 08:15 96.9 107 20 155/90 (111) 95 05/11/19 08:00 103 05/11/19 06:44 98.2 05/11/19 04:00 98 05/11/19 04:00 98.2 103 20 153/97 (115) 88 05/11/19 00:00 97.2 103 19 139/86 (103) 96 05/11/19 00:00 113 05/10/19 21:00 Nasal Cannula 1.0 05/10/19 20:40 95 Room Air 21 05/10/19 20:00 118 05/10/19 20:00 97.5 107 18 136/84 (101) 95 05/10/19 16:01 175/116 05/10/19 16:00 98 05/10/19 16:00 97.3 97 22 184/116 (138) 93 Intake and Output 05/10/19 05/11/19 19:00 07:00 Intake Total 237 ml Output Total 1200 ml Balance -963 ml Intake Oral 237 ml Output Urine Total 1200 ml # Voids 1 1 # Bowel Movements 2 General Appearance: no acute distress, cachetic HEENT: normocephalic, atraumatic, anicteric, mucous membranes moist Respiratory/Chest: chest wall non-tender, lungs clear, normal breath sounds, no respiratory distress, no accessory muscle use Cardiovascular: normal peripheral pulses, normal rate, regular rhythm Abdomen: normal bowel sounds, soft, non tender, no organomegaly, non distended , no mass Extremities: no cyanosis, no clubbing, no edema Current Medications Medications (Trade) Dose Ordered Sig/Haylee Route PRN Reason Start Time Stop Time Status Last Admin Dose Admin Acetaminophen (Tylenol) 650 mg Q4H PRN ORAL Mild Pain (Pain Scale 1-3) 05/08/19 18:45 06/03/19 18:44 Acetaminophen/ Hydrocodone Bitart ([place] 5/325) 1 tab Q6H PRN ORAL PAIN 4-10 05/08/19 18:45 05/11/19 18:44 05/10/19 20:30 Chlorhexidine Gluconate (Nadia-Hex 2%) 1 applic DAILY@2000 TOPIC 05/08/19 20:00 06/04/19 19:59 05/10/19 20:29 Clonidine HCl (Catapres Tab) 0.1 mg Q4H PRN ORAL SBP > OR = 160mmHg 05/08/19 18:45 06/03/19 18:44 05/10/19 04:38 Dextrose 1,000 ml @ 75 mls/hr [id number] IV 05/08/19 18:45 06/04/19 09:59 05/11/19 02:08 Dextrose (Dextrose 50%) 25 ml Q30M PRN IV Hypoglycemia 05/08/19 18:45 06/03/19 20:44 Dextrose (Dextrose 50%) 50 ml Q30M PRN IV Hypoglycemia 05/08/19 18:45 06/03/19 20:44 Gabapentin (Neurontin) 600 mg Q8HR ORAL 05/08/19 22:00 06/03/19 21:59 05/11/19 06:14 Haloperidol Lactate (Haldol) 5 mg Q6H PRN IM Agitation 05/08/19 18:45 06/04/19 18:44 Heparin Sodium (Porcine) (Heparin 5000 units/ml) 5,000 units EVERY 12 HOURS SUBQ 05/08/19 21:00 06/07/19 20:59 Hydralazine HCl (Apresoline) 10 mg Q4H PRN IV SBP >150 05/08/19 18:45 06/05/19 18:44 05/10/19 16:01 Oxycodone/ Acetaminophen (Percoc[place] 5-325) 1 tab Q4H PRN ORAL Severe Pain 6-10 05/10/19 22:00 05/17/19 21:59 05/11/19 11:32 Pantoprazole (Protonix) 40 mg ACBREAKFAST ORAL 05/10/19 06:30 06/09/19 06:29 05/11/19 06:14 Tramadol HCl (Ultram) 50 mg Q4H PRN NG for PAIN 05/08/19 19:00 05/12/19 18:59 05/10/19 15:50 Rd Li MD May 11, 2019 12:16
--- NOTE | 2019-05-11 12:33 | Infectious Diseases Prog Note ---
Assessment/Plan Assessment/Plan IMPRESSION: Pneumonia, Positive blood culture with CoANS likely contamination Hypercapnic respiratory failure, Chronic obstructive pulmonary disease, hypertension, dementia, congestive heart failure, obesity Thrombocytopenia. Acute renal failure improving RECOMMENDATIONS: Observe off antibiotic Subjective ROS Limited/Unobtainable: No Constitutional: Reports: no symptoms Respiratory: Reports: shortness of breath, productive cough Gastrointestinal/Abdominal: Reports: no symptoms Genitourinary: Reports: no symptoms Allergies: Coded Allergies: No Known Allergies (Unverified , 05/04/19) Objective Vital Signs Last 24 Hour Vital Signs Date Time Temp Pulse Resp B/P (MAP) Pulse Ox O2 Delivery O2 Flow Rate FiO2 05/11/19 12:00 97.7 114 20 132/89 (103) 95 05/11/19 09:00 Nasal Cannula 1.0 05/11/19 08:15 96.9 107 20 155/90 (111) 95 05/11/19 08:00 103 05/11/19 06:44 98.2 05/11/19 04:00 98 05/11/19 04:00 98.2 103 20 153/97 (115) 88 05/11/19 00:00 97.2 103 19 139/86 (103) 96 05/11/19 00:00 113 05/10/19 21:00 Nasal Cannula 1.0 05/10/19 20:40 95 Room Air 21 05/10/19 20:00 118 05/10/19 20:00 97.5 107 18 136/84 (101) 95 05/10/19 16:01 175/116 05/10/19 16:00 98 05/10/19 16:00 97.3 97 22 184/116 (138) 93 Height (Feet): 5 Height (Inches): 5.00 Weight (Pounds): 220 General Appearance: no acute distress HEENT: mucous membranes moist, other - poor dentition Respiratory/Chest: other - coarse sounds, oxygen by nasal cannula Cardiovascular: normal rate Abdomen: soft, non tender Extremities: no edema Neurologic/Psychiatric: alert, responsive Current Medications Medications (Trade) Dose Ordered Sig/Haylee Route PRN Reason Start Time Stop Time Status Last Admin Dose Admin Acetaminophen (Tylenol) 650 mg Q4H PRN ORAL Mild Pain (Pain Scale 1-3) 05/08/19 18:45 06/03/19 18:44 Acetaminophen/ Hydrocodone Bitart ([place] 5/325) 1 tab Q6H PRN ORAL PAIN 4-10 05/08/19 18:45 05/11/19 18:44 05/10/19 20:30 Chlorhexidine Gluconate (Nadia-Hex 2%) 1 applic DAILY@2000 TOPIC 05/08/19 20:00 06/04/19 19:59 05/10/19 20:29 Clonidine HCl (Catapres Tab) 0.1 mg Q4H PRN ORAL SBP > OR = 160mmHg 05/08/19 18:45 06/03/19 18:44 05/10/19 04:38 Dextrose 1,000 ml @ 75 mls/hr [id number] IV 05/08/19 18:45 06/04/19 09:59 05/11/19 02:08 Dextrose (Dextrose 50%) 25 ml Q30M PRN IV Hypoglycemia 05/08/19 18:45 06/03/19 20:44 Dextrose (Dextrose 50%) 50 ml Q30M PRN IV Hypoglycemia 05/08/19 18:45 06/03/19 20:44 Gabapentin (Neurontin) 600 mg Q8HR ORAL 05/08/19 22:00 06/03/19 21:59 05/11/19 06:14 Haloperidol Lactate (Haldol) 5 mg Q6H PRN IM Agitation 05/08/19 18:45 06/04/19 18:44 Heparin Sodium (Porcine) (Heparin 5000 units/ml) 5,000 units EVERY 12 HOURS SUBQ 05/08/19 21:00 06/07/19 20:59 Hydralazine HCl (Apresoline) 10 mg Q4H PRN IV SBP >150 05/08/19 18:45 06/05/19 18:44 05/10/19 16:01 Oxycodone/ Acetaminophen (Percocet 5-325) 1 tab Q4H PRN ORAL Severe Pain 6-10 05/10/19 22:00 05/17/19 21:59 05/11/19 11:32 Pantoprazole (Protonix) 40 mg ACBREAKFAST ORAL 05/10/19 06:30 06/09/19 06:29 05/11/19 06:14 Tramadol HCl (Ultram) 50 mg Q4H PRN NG for PAIN 05/08/19 19:00 05/12/19 18:59 05/10/19 15:50 Justo Jo MD May 11, 2019 12:33
[2019-05-11] MEDS: HYDROcodone/Acetamin 5/325 tab ORAL PRN (15:16)
[2019-05-11 16:00] VITALS: BP 126/77
--- NOTE | 2019-05-12 10:56 | Discharge Summary ---
Discharge Summary Discharge Summary _ DATE OF ADMISSION: 05/04/2019 DATE OF DISCHARGE: 05/11/2019 DISCHARGED BY: Dr. Jeffrey Jo REASON FOR ADMISSION: 73 years old female with past medical history of COPD, CHF, presented with from the [facility] facility with shortness of breath and hypoxia. Patient nonverbal and was unable to provide any history. Patient apparently was transferred to this facility from the [place] ; she was unhappy with the prior facility and requested transfer. After being in the [facility] facility for only few hours , she became progressively short of breath and hypoxic and required transfer to the hospital. No reported fever or chills. No chest pain. Upon evaluation blood pressure was on the low side , and patient was hypoxic. Laboratory work-up revealed no leukocytosis, hemoglobin 12.6, hematocrit 41.9, platelet count 51. Sodium 146, potassium 5.0. BUN 49, creatinine 1.9. Glucose 225. AST 62, ALT 36. Troponin 0.038. pro BNP 2886. EKG revealed sinus rhythm no acute ischemic changes. Albumin 2.4. Chest x-ray demonstrated suspected pneumonia at the left lung base. ABG on room air revealed acute respiratory acidosis with pH 7.25 , PCO2 61, O2 sat 89%. In emergency department patient started on supplemental oxygen as mentioned above , received nebulizing treatment with bronchodilator, started on the BiPAP and empiric antibiotic and subsequently admitted for further management. CONSULTANTS: pulmonary Dr. Li ID specialist Dr. Justo Jo psychiatrist [facility] COURSE: Patient admitted and started on empiric antibiotic as per ID specialist recommendation. Patient was on BiPAP. Shortly after admission patient's condition deteriorated and she required emergency oral intubation and placement of central line. Hemodynamic status was closely monitored. Low blood pressure responded to fluid challenge. No need for pressors. Patient transferred to ICU. Ventilator support and pulmonary toilet provided. Patient started on IV steroids and empiric antibiotics. Grain Mixer closely followed. Bronchodilator treatment via nebulizing therapy provided around the clock and as needed. Patient was able to be extubated . Echocardiogram revealed preserved ejection fraction of 60 to 65% with concentric left ventricular hypertrophy. No evidence of wall motion abnormality to the extent visualized. Right ventricular systolic pressure of 55 consistent with moderate pulmonary hypertension. Patient was followed-up with ABG and chest x-ray. Venous duplex bilateral lower extremity revealed no evidence of acute DVT. DVT prophylaxis provided. CT of the head revealed no acute intracranial pathology. Blood pressure was closely monitored and remained stable. Bedside swallow evaluation revealed A silent aspiration risk due to CVA , dementia and current pneumonia. Speech therapist recommended to consider a video swallow evaluation, which can be done as outpatient. Diet texture provided as per speech therapist recommendation. Strict aspiration precaution maintained with close supervision and assistance with all meals. GI prophylaxis provided. Influenza swab was negative. Blood culture revealed Staph epidermidis 1 out of 4 . Sputum culture revealed Ailyn. Patient was on antibiotics as per ID specialist recommendation. Positive blood culture with Staph epidermidis was likely contaminant. Renal parameters and electrolytes were closely monitored, electrolytes corrected as needed , and nephrotoxins were avoided . Creatinine from 1.9 down to 1.1 Platelet count was closely monitored and increased to 73. Patient will need outpatient work-up for thrombocytopenia. Supportive care provided. Patient completed 5 days of steroids . Per psychiatrist, patient had acute encephalopathy, which was improving , possibly due to underlying pneumonia . Patient clinically stabilized and was ready for discharge to [facility] facility for continuation of care FINAL DIAGNOSES: Acute hypercapnic hypoxemic respiratory failure requiring intubation 05/05, status post extubation COPD exacerbation Pneumonia CHF Acute encephalopathy Acute renal failure History of CVA Dementia Thrombocytopenia DISCHARGE MEDICATIONS: See Medication Reconciliation list. DISCHARGE INSTRUCTIONS: Patient was discharged to the [facility] facility. Follow up with medical doctor at the facility. I have been assigned to dictate discharge summary for this account. I was not involved in the patient's management. Aleena Donnelly NP May 12, 2019 10:56
== END 2019-05-11 20:30 | DRG 871 ==
LOC: EDBD 15:17 → EMR 15:25 → 2E 16:25 → EDBEDREQ 18:42 → 2W 21:26 → ICU 23:47 → 2W 05-07 18:47 → 2E 05-08 18:20
PROC: 0BH17EZ Insertion of Endotracheal Airway into Trachea, Via Natural or Artificial Opening (ICD-10-PCS; principal; 2019-05-05)
PROC: 5A1945Z Respiratory Ventilation, 24-96 Consecutive Hours (ICD-10-PCS; principal; 2019-05-05)
PROC: 06HM33Z Insertion of Infusion Device into Right Femoral Vein, Percutaneous Approach (ICD-10-PCS; principal; 2019-05-05)
DX: A41.9 Sepsis, unspecified organism (principal); J18.9 Pneumonia, unspecified organism; J96.01 Acute respiratory failure with hypoxia; J96.02 Acute respiratory failure with hypercapnia; N17.9 Acute kidney failure, unspecified; E87.0 Hyperosmolality and hypernatremia; F20.0 Paranoid schizophrenia; J44.1 Chronic obstructive pulmonary disease with (acute) exacerbation; Z99.11 Dependence on respirator [ventilator] status; G93.40 Encephalopathy, unspecified; F03.91 Unspecified dementia, unspecified severity, with behavioral disturbance; E66.9 Obesity, unspecified; Z68.36 Body mass index [BMI] 36.0-36.9, adult; D69.6 Thrombocytopenia, unspecified; I11.0 Hypertensive heart disease with heart failure; I50.9 Heart failure, unspecified
CPT/HCPCS: 31500; 36415; 36600; 70450; 71045; 74018; 80048; 80053; 80061; 80202; 81003; 82803; 83036; 83605; 83735; 83880; 84443; 84484; 85007; 85025; 86710; 87040; 87070; 87081; 87181; 87205; 93005; 93306; 93970; 94002; 94003; 94640; 94660; 94664; 96365; 96368; 96375; 99291; J7030; J7620